=== PATIENT | male | born 1965 | race Caucasian/White ===

== ENCOUNTER → 2018-04-24 | Outpatient (CLI) | payer OTHER ==
[~2018-04-24] MED LIST: ACHD5005 PO; AMPI500C9 PO; CFTR1PB IV; CLIN300C11 PO; METR500T PO; SODI473S7; SULF1TAB35 PO; TERB250T16 PO; VENL75CA PO
[2018-04-24 17:19] LABS: BASOPHILS % (AUTO) 0 % (0-10); EOSINOPHILS # (AUTO) 0.2 10^3/uL (0.0-0.3); EOSINOPHILS % (AUTO) 3 % (0-10); HEMATOCRIT 32 % (40-54); HEMOGLOBIN 10.5 G/DL (13.3-17.7); LYMPHOCYTES # (AUTO) 1.7 X 10^3 (1.0-4.0); LYMPHOCYTES % (AUTO) 18 % (12-44); MEAN CORPUSCULAR HEMOGLOBIN 28 PG (25-34); MEAN CORPUSCULAR HGB CONC 33 G/DL (32-36); MEAN CORPUSCULAR VOLUME 84 FL (80-99); MEAN PLATELET VOLUME 8.9 FL (7.4-10.4); MONOCYTES # (AUTO) 0.8 X 10^3 (0.0-1.0); MONOCYTES % (AUTO) 9 % (0-12); NEUTROPHILS # (AUTO) 6.4 X 10^3 (1.8-7.8); NEUTROPHILS % (AUTO) 70 % (42-75); PLATELET COUNT 491 10^3/uL (130-400); RED BLOOD COUNT 3.76 10^6/uL (4.35-5.85); RED CELL DISTRIBUTION WIDTH 13.8 % (10.0-14.5); WHITE BLOOD COUNT 9.2 10^3/uL (4.3-11.0)
[2018-04-24 17:34] LABS: ALANINE AMINOTRANSFERASE 29 U/L (0-55); ALBUMIN 3.4 GM/DL (3.2-4.5); ALKALINE PHOSPHATASE 89 U/L (40-136); BILIRUBIN,TOTAL 0.4 MG/DL (0.1-1.0); BUN/CREATININE RATIO 13; CALCIUM 9.5 MG/DL (8.5-10.1); CARBON DIOXIDE 24 MMOL/L (21-32); CHLORIDE 97 MMOL/L (98-107); CREATININE SERUM 0.91 MG/DL (0.60-1.30); GFR ESTIMATED > 60; GLUCOSE 263 MG/DL (70-105); POTASSIUM 4.2 MMOL/L (3.6-5.0); SODIUM 131 MMOL/L (135-145); TOTAL PROTEIN 8.7 GM/DL (6.4-8.2)
--- NOTE | 2018-04-24 19:27 | Diagnostic Imaging Report ---
INDICATION: Non-pressure chronic ulcer of left foot. AP, oblique, and lateral views of the left foot are obtained. There is no prior study for comparison. FINDINGS: There is destructive change of the proximal aspect of the fifth proximal phalanx as well as the distal aspect of the fifth metatarsal. There is dislocation of the fifth MTP joint with bony destruction. Underlying osteomyelitis is suspected. There is overlying soft tissue swelling. There is no other destructive bony lesion. There is diffuse degenerative change throughout the tarsal bones with plantar and posterior calcaneal spurring. IMPRESSION: Findings suspicious for osteomyelitis of the distal aspect of the fifth metatarsal as well as the fifth proximal phalanx. There is dislocation and bony destruction of the fifth MTP joint. There are underlying degenerative findings. Dictated by: Dictated on workstation # [id number]
== END ==
LOC: LAB 16:25
PROVIDERS: ATTEND Surgery
DX: E11.621 Type 2 diabetes mellitus with foot ulcer (principal); L97.523 Non-pressure chronic ulcer of other part of left foot with necrosis of muscle
CPT/HCPCS: 36415; 73630; 80053; 83036; 85025

== ENCOUNTER → 2018-04-24 | Outpatient (CLI) | payer OTHER | LOC: WOUNDCARE 14:14 | PROVIDERS: ATTEND Surgery | DX: E11.621 Type 2 diabetes mellitus with foot ulcer (principal); L97.523 Non-pressure chronic ulcer of other part of left foot with necrosis of muscle; L97.511 Non-pressure chronic ulcer of other part of right foot limited to breakdown of skin; L03.116 Cellulitis of left lower limb | CPT/HCPCS: 97597 ==

== ENCOUNTER 2018-04-27 09:47 | Inpatient (IN) | payer OTHER ==
[~2018-04-27] VITALS: Ht 177.8 cm; Wt 112.7 kg
[2018-04-27 10:00] VITALS: BP 153/69
[2018-04-27] MEDS ORDERED: ONDANSETRON 4 MG/2 ML (SDV) Z0FRAN IVP PRN (10:00)
[2018-04-27] MEDS ORDERED: ACETAMINOPHEN 500 MG TAB (TYLENOL) PO PRN (10:00)
[2018-04-27] MEDS ORDERED: fentaNYL INJECTION 100 MCG/2 ML AMP IVP PRN ×2 (10:00→12:00)
[2018-04-27] MEDS ORDERED: ALPRAZolam 0.25 MG (XANAX) TAB PO PRN (10:00)
[2018-04-27] MEDS ORDERED: CALCIUM CARBONATE 500 MG (TUMS) TAB.CHEW PO PRN (10:00)
[2018-04-27] MEDS ORDERED: VANCOMYCIN INJECTION 0.1 MG in NS (IVPB) 250 ML IV SCH (10:00)
[2018-04-27] MEDS ORDERED: DOCUSATE SODIUM 100 MG (COLACE) CAP PO PRN (10:00)
[2018-04-27] MEDS ORDERED: AMPI500C9 PO (10:28)
[2018-04-27] MEDS ORDERED: SULF1TAB35 PO (10:28)
[2018-04-27] MEDS ORDERED: VENL75CA PO (10:28)
[2018-04-27] MEDS ORDERED: TERB250T16 PO (10:28)
[2018-04-27] MEDS ORDERED: METR500T PO (10:28)
[2018-04-27] MEDS ORDERED: SODI473S7 (10:28)
[2018-04-27] MEDS ORDERED: CLIN300C11 PO (10:28)
[2018-04-27 10:34] VITALS: BP 122/77
[2018-04-27] MEDS ORDERED: PIPERACILLIN/TAZO 4.5 GM/NS 100 ML IV NR ×2 (10:38)
[2018-04-27 10:48] LABS: BASOPHILS % (AUTO) 0 % (0-10); EOSINOPHILS # (AUTO) 0.1 10^3/uL (0.0-0.3); EOSINOPHILS % (AUTO) 2 % (0-10); HEMATOCRIT 36 % (40-54); HEMOGLOBIN 11.9 G/DL (13.3-17.7); LYMPHOCYTES # (AUTO) 1.3 X 10^3 (1.0-4.0); LYMPHOCYTES % (AUTO) 17 % (12-44); MEAN CORPUSCULAR HEMOGLOBIN 28 PG (25-34); MEAN CORPUSCULAR HGB CONC 33 G/DL (32-36); MEAN CORPUSCULAR VOLUME 84 FL (80-99); MEAN PLATELET VOLUME 8.5 FL (7.4-10.4); MONOCYTES # (AUTO) 0.7 X 10^3 (0.0-1.0); MONOCYTES % (AUTO) 10 % (0-12); NEUTROPHILS # (AUTO) 5.4 X 10^3 (1.8-7.8); NEUTROPHILS % (AUTO) 71 % (42-75); PLATELET COUNT 623 10^3/uL (130-400); RED BLOOD COUNT 4.24 10^6/uL (4.35-5.85); RED CELL DISTRIBUTION WIDTH 14.3 % (10.0-14.5); WHITE BLOOD COUNT 7.6 10^3/uL (4.3-11.0)
[2018-04-27 11:09] LABS: ALBUMIN 3.9 GM/DL (3.2-4.5); BILIRUBIN,TOTAL 0.4 MG/DL (0.1-1.0); CALCIUM 10.1 MG/DL (8.5-10.1); CREATININE SERUM 1.25 MG/DL (0.60-1.30); POTASSIUM 4.4 MMOL/L (3.6-5.0); TOTAL PROTEIN 10.2 GM/DL (6.4-8.2)
[2018-04-27] MEDS ORDERED: VANCOMYCIN 2000 MG/NS 500 ML IVPB IV SCH ×2 (11:30)
[2018-04-27] MEDS: ENOXAPARIN 40 MG/0.4 ML (LOVENOX) SYR SC SCH (11:51)
[2018-04-27] MEDS: inSUlin ASPART (NovoLOG) 1 UNIT/0.01 ML (CHARGE PER UNIT) SC SCH ×3 (11:52→21:23)
[2018-04-27] MEDS: NS IV 1000 ML 1,000 ML IV SCH ×2 (11:52→21:58)
--- NOTE | 2018-04-27 11:58 | History & Physical-Hospitalist ---
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 Patient was found to have severe infection of acute on chronic type any of been placed on 4 antibiotics and seen by Dr. Diaz the patient will need debridement and resection of the osteomyelitis of the bone of the left foot. He denies any significant problems and had stopped diabetic medications since undergoing a lap band and losing a lot of weight. He is recently and having significant social issues at home making it more more difficult for him to get his foot healed up. Source: patient Exam Limitations: no limitations Date Seen 04/27/18 Time Seen by a Provider: 10:00 Attending Physician Lamar Ryan DO PCP No,Local Physician Referring Physician Date of Admission Apr 27, 2018 at 09:55 Home Medications & Allergies Home Medications Reviewed patient Home Medication Reconciliation performed by pharmacy medication reconciliations instrument technician and/or nursing. Patients Allergies have been reviewed. Allergies Allergies Coded Allergies No Known Drug Allergies (Dlpiepjvgc89/1/18) Past Ezdixde-Pgtnzp-Rgjokk Hx Past Med/Social Hx: Reviewed Nursing Past Med/Soc Hx, Reviewed and Corrections made Patient Social History Marrital Status: Employed/Student: self-employed Alcohol Use: Rarely Uses Alcohol Beverage of Choice: Beer Smoking Status: Never a Smoker Recent Foreign Travel: No Contact w/other who traveled: No Past Medical History Surgeries: Abdominal (lapband) Endocrine: Diabetes, Non-Insulin dep Review of Systems Constitutional: see HPI, weakness EENTM: no symptoms reported Respiratory: no symptoms reported Cardiovascular: no symptoms reported Gastrointestinal: no symptoms reported Genitourinary: no symptoms reported Musculoskeletal: other (foot pain left) Skin: see HPI Psychiatric/Neurological: Headache Physical Exam Physical Exam Vital Signs Vital Signs - First Documented Capillary Refill : Height, Weight, BMI Height: 5'10.00" Weight: 225lbs. 5.0oz. 102.929732eq; 32.3 BMI Method: General Appearance: No Apparent Distress, WD/WN Eyes: Bilateral Eye Normal Inspection, Bilateral Eye PERRL HEENT: PERRL/EOMI, TMs Normal, Normal ENT Inspection, Pharynx Normal Neck: Full Range of Motion, Normal Inspection, Non Tender, Supple, Carotid Bruit Respiratory: Chest Non Tender, Lungs Clear, Normal Breath Sounds, No Accessory Muscle Use, No Respiratory Distress Cardiovascular: Regular Rate, Rhythm, No Edema, No Gallop, No JVD, No Murmur, Normal Peripheral Pulses Gastrointestinal: Normal Bowel Sounds, No Organomegaly, No Pulsatile Mass, Non Tender, Soft Back: Normal Inspection, No CVA Tenderness, No Vertebral Tenderness Extremity: Normal Capillary Refill, Normal Inspection, Normal Range of Motion, Non Tender, No Calf Tenderness, No Pedal Edema Neurologic/Psychiatric: Alert, Oriented x3, No Motor/Sensory Deficits, Normal Mood/Affect Skin: Normal Color, Warm/Dry, Other (left foot with draining ulcer and bone exposed) Lymphatic: No Adenopathy Results Results/Procedures Labs Laboratory Tests 04/27/18 10:30 04/28/18 06:03 Patient resulted labs reviewed. Assessment/Plan Admission Diagnosis Assessment: Left DM foot ulcer with osteomyelitis confirmed on MRI Cellulitis Previous DM but stopped meds after lapband Plan: IV abx broad spectrum Dr Lynn consultation Admission Status: Inpatient Order (span 2 midnights) Reason for Inpatient Admission: Severe osteomyelitis and cellulitis will require IV abx and debridement Diagnosis/Problems Diagnosis/Problems (1) Foot ulcer, left Status: Acute Qualifiers: Non-pressure ulcer stage: with necrosis of bone Qualified Codes: L97.524 - Non-pressure chronic ulcer of other part of left foot with necrosis of bone (2) Osteomyelitis Status: Acute Qualifiers: Osteomyelitis type: unspecified type Osteomyelitis location: foot Laterality: left Qualified Codes: M86.9 - Osteomyelitis, unspecified (3) Diabetes mellitus Status: Chronic Qualifiers: Diabetes mellitus type: type 2 Diabetes mellitus mcfp insulin use: without long term care phlebotomist use Diabetes mellitus complication status: with unspecified complications Qualified Codes: E11.8 - Type 2 diabetes mellitus with unspecified complications HIRAL GERARDO MED STUDENT 04/27/18 1253: History of Present Illness HPI/Chief Complaint CC: Left foot ulcer HPI: This 53 y/o male was admitted upon referral from Dr. Lynn due to a diabetic ulcer of the left foot. The patient states that the ulcer began as a small wound after peeling of a callus in October of this year. The wound became infected and he began to seek treatment at the [facility] in [place] in December. He was prescribed antibiotic therapeis and was going in to have the nurse redress the wound periodically. He had a similar incident that occurred 7-8 years ago when he stepped on a nail. He stated that the injury eventually required surgical debridement. He was diagnosed with Diabetes in the but went through gastric bypass surgery several years ago and quit monitoring his blood glucose or taking any medications. Home Medications & Allergies Home Medications Active Scripts Medications Dose Route/Sig Max Daily Dose Days Date Category Dose Instructions Clindamycin HCl 300 Mg Capsule 300 Mg PO Q6H 04/27/18 Reported #40 CAPSULES FILLED 04-17-18 Terbinafine HCl 250 Mg Tablet 250 Mg PO DAILY 04/27/18 Reported #30 FILLED 04-17-18 Ampicillin Trihydrate 500 Mg Capsule 500 Mg PO QID 04/27/18 Reported 10 DAY SUPPLY FILLED 04-19-18 Flagyl (Metronidazole) 500 Mg Tablet 500 Mg PO TID 04/27/18 Reported 10 DAY SUPPLY FILLED 04-24-18 Bactrim Ds Tablet (Sulfamethoxazole/Trimethoprim) 1 Each Tablet 1 Tab PO BID 10 04/27/18 Reported 10 DAY SUPPLY FILLED 04-24-18 Dakin's (Sodium Hypochlorite) 473 Ml Solution UD 04/27/18 Reported Effexor Xr (Venlafaxine HCl) 75 Mg Cap.er.24h 75 Mg PO DAILY 04/27/18 Reported Past Xzutike-Uvsadt-Whopsi Hx Patient Social History Marrital Status: Number of Children: 2 Employed/Student: self-employed Alcohol Use: Rarely Uses Alcohol Beverage of Choice: Beer Recreational Drug Use: No Smoking Status: Never a Smoker Seasonal Allergies Seasonal Allergies: No Past Medical History Surgeries: Abdominal Family History Diabetes Review of Systems Constitutional: no symptoms reported EENTM: no symptoms reported Respiratory: no symptoms reported Cardiovascular: no symptoms reported Gastrointestinal: no symptoms reported Psychiatric/Neurological: Headache Physical Exam Physical Exam General Appearance: No Apparent Distress, WD/WN HEENT: PERRL/EOMI Neck: Full Range of Motion, Normal Inspection, Non Tender, Supple Respiratory: Chest Non Tender, Lungs Clear, Normal Breath Sounds, No Accessory Muscle Use, No Respiratory Distress Cardiovascular: Regular Rate, Rhythm, No Edema, No Gallop, No JVD, No Murmur, Normal Peripheral Pulses Neurologic/Psychiatric: Alert, Oriented x3, No Motor/Sensory Deficits, Normal Mood/Affect Skin: Normal Color, Warm/Dry Lymphatic: No Adenopathy Assessment/Plan Assessment and Plan Assessment: 1) Ulcer of the left foot 2) Diabetes Mellitus Plan: 1) IV abx 2) Initiate diabetes pharmacotherapy LAMAR RYAN DO Apr 27, 2018 11:58 HIRAL GERARDO MED STUDENT Apr 27, 2018 12:53
[2018-04-27 12:00] VITALS: BP 124/71
[2018-04-27 13:31] LABS: BILIRUBIN,URINE NEGATIVE (NEGATIVE); CLARITY,URINE CLEAR; COLOR,URINE YELLOW; GLUCOSE, URINE (UA) 3+ (NEGATIVE); KETONES,URINE 2+ (NEGATIVE); LEUKOCYTE ESTERASE ,URINE 2+ (NEGATIVE); NITRITE,URINE NEGATIVE (NEGATIVE); PH,URINE 5 (5-9); PROTEIN,URINE 2+ (NEGATIVE); UROBILINOGEN,URINE NORMAL (NORMAL)
[2018-04-27 13:51] LABS: BACTERIA,URINE FEW /HPF
--- NOTE | 2018-04-27 17:09 | Diagnostic Imaging Report ---
PROCEDURE: MR imaging left lower extremity without contrast. TECHNIQUE: Multiplanar, multisequence non contrast enhanced MR imaging of the left lower extremity was accomplished. INDICATION: Ulcer along the lateral forefoot. Swelling. COMPARISON: Left foot radiographs from 04/24/2018. FINDINGS: MRI confirms osteomyelitis throughout the entire fifth metatarsal with a pathologic fracture at the level of the fifth metatarsal head neck junction. There is also marrow replacement in the fifth metatarsal head and phalanges that would also indicate osteomyelitis. There are no features of osteomyelitis within the fourth ray. Remainder of the osseous structures in the foot are also normal. No drainable soft tissue abscess. Skin thickening and dermal abscess along the lateral aspect of the foot is indicative of cellulitis without drainable abscess. IMPRESSION: 1. Osteomyelitis of the entire fifth metatarsal and fifth phalanges. 2. No drainable abscess. Dictated by: Dictated on workstation # [id number]
[2018-04-27] MEDS ORDERED: FLU QUADRIvalent (5+ YOA) 2018-2019 (AFLURIA) 0.5 ML IM ONE (17:15)
[2018-04-27] MEDS: PIPERACILLIN SODIUM/TAZOBACTAM 4.5 GM in NS (IVPB) 100 ML IV SCH (18:01)
[2018-04-27] MEDS: VANCOMYCIN 1500 MG/NS 500 ML IVPB IV SCH ×2 (22:28)
[2018-04-28] VITALS (7 sets, daily range): BP systolic 102–116; BP diastolic 62–78
[2018-04-28] MEDS: PIPERACILLIN SODIUM/TAZOBACTAM 4.5 GM in NS (IVPB) 100 ML IV SCH ×3 (01:55→18:54)
[2018-04-28] MEDS: VENlafaxine XR 75 MG (EFFEXOR XR) CAP PO SCH (05:29)
[2018-04-28] MEDS: inSUlin ASPART (NovoLOG) 1 UNIT/0.01 ML (CHARGE PER UNIT) SC SCH ×4 (05:40→22:23)
[2018-04-28] MEDS: NS IV 1000 ML 1,000 ML IV SCH ×2 (06:33→21:36)
[2018-04-28 07:26] LABS: BASOPHILS % (AUTO) 1 % (0-10); EOSINOPHILS # (AUTO) 0.2 10^3/uL (0.0-0.3); EOSINOPHILS % (AUTO) 3 % (0-10); HEMATOCRIT 32 % (40-54); HEMOGLOBIN 10.4 G/DL (13.3-17.7); LYMPHOCYTES # (AUTO) 1.7 X 10^3 (1.0-4.0); LYMPHOCYTES % (AUTO) 33 % (12-44); MEAN CORPUSCULAR HEMOGLOBIN 27 PG (25-34); MEAN CORPUSCULAR HGB CONC 32 G/DL (32-36); MEAN CORPUSCULAR VOLUME 85 FL (80-99); MEAN PLATELET VOLUME 8.8 FL (7.4-10.4); MONOCYTES # (AUTO) 0.7 X 10^3 (0.0-1.0); MONOCYTES % (AUTO) 13 % (0-12); NEUTROPHILS # (AUTO) 2.6 X 10^3 (1.8-7.8); NEUTROPHILS % (AUTO) 50 % (42-75); PLATELET COUNT 515 10^3/uL (130-400); RED BLOOD COUNT 3.81 10^6/uL (4.35-5.85); RED CELL DISTRIBUTION WIDTH 14.3 % (10.0-14.5); WHITE BLOOD COUNT 5.1 10^3/uL (4.3-11.0)
[2018-04-28 07:41] LABS: ALANINE AMINOTRANSFERASE 21 U/L (0-55); ALBUMIN 3.2 GM/DL (3.2-4.5); ALKALINE PHOSPHATASE 70 U/L (40-136); BILIRUBIN,TOTAL 0.3 MG/DL (0.1-1.0); BUN/CREATININE RATIO 11; CALCIUM 9.5 MG/DL (8.5-10.1); CARBON DIOXIDE 21 MMOL/L (21-32); CHLORIDE 103 MMOL/L (98-107); GFR ESTIMATED > 60; GLUCOSE 140 MG/DL (70-105); POTASSIUM 4.3 MMOL/L (3.6-5.0); SODIUM 135 MMOL/L (135-145); TOTAL PROTEIN 8.1 GM/DL (6.4-8.2)
[2018-04-28] MEDS ORDERED: TROUGH ORDER-PHARMACY XX ONE (10:00)
--- NOTE | 2018-04-28 10:44 | Progress Note-Hospitalist ---
ADRIANNA RYAN 04/28/18 1044: Subjective HPI/CC On Admission Date Seen by Provider: Apr 28, 2018 Time Seen by Provider: 11:00 CC: Left foot ulcer HPI: This 53 y/o male was admitted upon referral from Dr. Lynn due to a diabetic ulcer of the left foot. The patient states that the ulcer began as a small wound after peeling of a callus in October of this year. The wound became infected and he began to seek treatment at the [facility] in [place] in December. He was prescribed antibiotic therapeis and was going in to have the nurse redress the wound periodically. He had a similar incident that occurred 7-8 years ago when he stepped on a nail. He stated that the injury eventually required surgical debridement. He was diagnosed with Diabetes in the s but went through gastric bypass surgery several years ago and quit monitoring his blood glucose or taking any medications. Subjective/Events-last exam Will place PICC line Continue antibiotics Continue insulin Focused Exam Lactate Level 04/27/18 10:30: Lactic Acid Level 1.36 Objective Exam Vital Signs Vital Signs Date Time Temp Pulse Resp B/P (MAP) Pulse Ox O2 Delivery O2 Flow Rate FiO2 04/28/18 08:24 98.9 70 18 104/78 (87) 98 Room Air Capillary Refill : General Appearance: No Apparent Distress, WD/WN Respiratory: Chest Non Tender, Lungs Clear, Normal Breath Sounds, No Accessory Muscle Use, No Respiratory Distress Cardiovascular: Regular Rate, Rhythm, No Edema, No Gallop, No JVD, No Murmur, Normal Peripheral Pulses Neurologic/Psychiatric: Alert, Oriented x3, No Motor/Sensory Deficits, Normal Mood/Affect Results/Procedures Lab Laboratory Tests 04/28/18 06:03 Patient resulted labs reviewed. Assessment/Plan Assessment and Plan Assess & Plan/Chief Complaint Left DM foot ulcer with osteo DM OOC Abx PICC Clinical Quality Measures DVT/VTE Risk/Contraindication: Risk Factor Score Per Nursin RFS Level Per Nursing on Admit: 3=High HIRAL GERARDO MED STUDENT 04/28/18 1134: Subjective Subjective/Events-last exam Pt. looks well and is not currently in any pain Pt. will go to surgery later today He reports a good appetite and no N/V/D Objective Exam General Appearance: No Apparent Distress, WD/WN Respiratory: Chest Non Tender, Lungs Clear, Normal Breath Sounds, No Accessory Muscle Use, No Respiratory Distress Cardiovascular: Regular Rate, Rhythm, No Edema, No Gallop, No JVD, No Murmur, Normal Peripheral Pulses Neurologic/Psychiatric: Alert, Oriented x3, No Motor/Sensory Deficits, Normal Mood/Affect Skin: Normal Color, Warm/Dry Assessment/Plan Assessment and Plan Assess & Plan/Chief Complaint Assessment: 1) ulcer of left foot 2) diabetes mellitus Plan: 1) surgical removal of necrotic bone and tissue on left foot 2) insulin therapy for DM ADRIANNA RYAN DO Apr 28, 2018 10:44 HIRAL GERARDO MED STUDENT Apr 28, 2018 11:34
--- NOTE | 2018-04-28 13:27 | Diagnostic Imaging Report ---
Indication: Left foot ulcer in the region of the fifth MTP joint. The patient is diabetic. Patient was measured administered 24.3 mCi technetium 99m MDP intravenously and dynamic flow, blood pool and delayed imaging over bilateral feet was performed. There is asymmetric increased perfusion to the left foot particularly along on the lateral side in the region of the fifth metatarsal and fifth toe. There is some mild increased perfusion in the region of the great toe of the right foot. Blood pool activity demonstrates persistent activity at these same areas in the left great toe in the region of the interphalangeal joint as well as the lateral portion of the left foot. The delayed imaging does show some intense uptake along the proximal and mid shaft of the left fifth metatarsal. There is also uptake in the right great toe. Impression: Three-phase abnormalities are identified in the lateral portion of the left foot along the fifth metatarsal particularly the proximal and mid aspect consistent with osteomyelitis. There is also a 3 phase abnormality involving the right great toe. Correlation with plain films of the right great toe would be useful. Dictated by: Dictated on workstation # [id number]
[2018-04-28] MEDS: ENOXAPARIN 40 MG/0.4 ML (LOVENOX) SYR SC SCH (13:59)
[2018-04-28] MEDS: VANCOMYCIN 1500 MG/NS 500 ML IVPB IV SCH ×4 (14:11→22:23)
--- NOTE | 2018-04-28 14:23 | Diagnostic Imaging Report ---
Indication: PICC line placement. Time of exam: 2:06 PM No prior studies are available for comparison. Left upper extremity PICC line appears to have the tip in good position overlying the SVC. No pneumothorax or effusion is seen. The lungs are clear. Impression: Satisfactory PICC line placement. Dictated by: Dictated on workstation # [id number]
[2018-04-28] MEDS ORDERED: LIDOCAINE PF 2% 5 ML (XYLOCAINE) VIAL ONE (15:41)
[2018-04-28] MEDS ORDERED: proPOfol 200 MG/20 ML (DIPRIVAN) VIAL IV ONE (15:41)
[2018-04-28] MEDS ORDERED: ONDANSETRON 4 MG/2 ML (SDV) Z0FRAN ONE (15:41)
[2018-04-28] MEDS ORDERED: fentaNYL INJECTION 100 MCG/2 ML AMP ONE (15:41)
[2018-04-28] MEDS ORDERED: MIDAZOLAM 2 MG/2 ML (VERSED) VIAL ONE (15:41)
[2018-04-28] MEDS ORDERED: SEVOFLURANE (ULTANE) 15 ML INHAL SOLN ONE ×6 (16:00→17:21)
[2018-04-28] MEDS ORDERED: LACTATED RINGERS 1,000 ML IV PRN (16:22)
[2018-04-28] MEDS ORDERED: ONDANSETRON 4 MG/2 ML (SDV) Z0FRAN IVP PRN (16:30)
[2018-04-28] MEDS ORDERED: morphine INJ 10 MG/ML 1ML (SYR OR VIAL) IVP ONE (16:30)
[2018-04-28] MEDS ORDERED: fentaNYL INJECTION 100 MCG/2 ML AMP IVP ONE (16:30)
[2018-04-28] MEDS ORDERED: MEPERIDINE (DEMEROL) INJ 50 MG/ML IVP ONE (16:30)
[2018-04-28] MEDS ORDERED: VANCOMYCIN 1000 MG/VIAL ONE (16:46)
[2018-04-28] MEDS ORDERED: GENTAMICIN 40 MG/ML 2 ML INJ SDV ONE ×2 (16:47→16:55)
[2018-04-29] VITALS: BP 100/59
[2018-04-29] MEDS: PIPERACILLIN SODIUM/TAZOBACTAM 4.5 GM in NS (IVPB) 100 ML IV SCH ×3 (01:22→16:25)
[2018-04-29] MEDS: NS IV 1000 ML 1,000 ML IV SCH ×2 (03:01→11:33)
[2018-04-29 04:00] VITALS: BP 104/64
[2018-04-29] MEDS: inSUlin ASPART (NovoLOG) 1 UNIT/0.01 ML (CHARGE PER UNIT) SC SCH ×4 (06:14→21:29)
[2018-04-29] MEDS: VENlafaxine XR 75 MG (EFFEXOR XR) CAP PO SCH (06:30)
[2018-04-29 07:59] VITALS: BP 115/61
[2018-04-29] MEDS: ENOXAPARIN 40 MG/0.4 ML (LOVENOX) SYR SC SCH (09:46)
--- NOTE | 2018-04-29 09:58 | Anesthesia-General Post-Op ---
General Patient Condition Mental Status/LOC: Same as Preop Cardiovascular: Satisfactory Nausea/Vomiting: Absent Respiratory: Satisfactory Pain: Controlled Complications: Absent Post Op Complications Complications None Follow Up Care/Instructions Patient Instructions None needed. Anesthesia/Patient Condition Patient Condition Patient is doing well, no complaints, stable vital signs, no apparent adverse anesthesia problems. No complications reported per nursing. STEFANIE HANNA CRNA Apr 29, 2018 09:58
[2018-04-29] MEDS: VANCOMYCIN 1500 MG/NS 500 ML IVPB IV SCH ×4 (11:33→23:27)
--- NOTE | 2018-04-29 11:52 | Progress Note-Hospitalist ---
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 Patient was found to have severe infection of acute on chronic type any of been placed on 4 antibiotics and seen by Dr. Diaz the patient will need debridement and resection of the osteomyelitis of the bone of the left foot. He denies any significant problems and had stopped diabetic medications since undergoing a lap band and losing a lot of weight. He is recently and having significant social issues at home making it more more difficult for him to get his foot healed up. Subjective/Events-last exam Patient currently says that he feels great denies having any chest pain or shortness of breath. He is having very little post op pain from the amputation on his left foot. Wound VAC is in place and the dressing appears dry and clean. Blood sugars are running a little high but that would be expected after the stress of the surgery. Review of Systems Musculoskeletal: foot pain (Minimal) Focused Exam Lactate Level 04/27/18 10:30: Lactic Acid Level 1.36 Objective Exam Vital Signs Vital Signs Date Time Temp Pulse Resp B/P (MAP) Pulse Ox O2 Delivery O2 Flow Rate FiO2 04/29/18 07:59 98.4 80 18 115/61 (79) 99 Room Air Capillary Refill : General Appearance: No Apparent Distress, WD/WN HEENT: TMs Normal, Normal ENT Inspection, Pharynx Normal Neck: Full Range of Motion, Normal Inspection, Non Tender, Supple Respiratory: Chest Non Tender, Lungs Clear, Normal Breath Sounds, No Accessory Muscle Use, No Respiratory Distress Cardiovascular: Regular Rate, Rhythm, No Gallop, No JVD, No Murmur Gastrointestinal: Non Tender, Soft Rectal: Deferred Back: Normal Inspection, No CVA Tenderness Extremity: Pedal Edema Skin: Normal Color, Warm/Dry Results/Procedures Lab Patient resulted labs reviewed. Assessment/Plan Assessment and Plan Assess & Plan/Chief Complaint 1. Postop day number 1 status post amputation left fifth metatarsal head for osteomyelitis on vancomycin and Zosyn 2. Diabetes mellitus on insulin consideration could be given to addition of a statin and an JENELLE inhibitor. 3. Anemia with a hemoglobin at 10.4 Currently doing well will Hep-Lock his IV fluids Clinical Quality Measures DVT/VTE Risk/Contraindication: Risk Factor Score Per Nursin RFS Level Per Nursing on Admit: 3=High JOANIE SARABIA MD Apr 29, 2018 11:52
--- NOTE | 2018-04-29 14:52 | Consultation ---
History of Present Illness History of Present Illness Patient Consulted On(vlad/time) 04/29/18 14:46 Date Seen by Provider: Apr 28, 2018 Time Seen by Provider: 16:00 Reason for Visit: Osteomyelitis Left Foot History of Present Illness Pt has an approximately 3mo history of a nonhealing wound to the left lateral foot. 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 Currently denies F/C/N/V. He is currently not taking DM meds after having past history of lap band surgery and weight loss. Allergies and Home Medications Allergies Coded Allergies: No Known Drug Allergies (Unverified , 04/27/18) Home Medications Ampicillin Trihydrate 500 Mg Capsule, 500 MG PO QID, (Reported) 10 DAY SUPPLY FILLED 04-19-18 Clindamycin HCl 300 Mg Capsule, 300 MG PO Q6H, (Reported) #40 CAPSULES FILLED 04-17-18 Metronidazole 500 Mg Tablet, 500 MG PO TID, (Reported) 10 DAY SUPPLY FILLED 04-24-18 Sodium Hypochlorite 473 Ml Solution, UD, (Reported) Sulfamethoxazole/Trimethoprim 1 Each Tablet, 1 TAB PO BID, (Reported) 10 DAY SUPPLY FILLED 04-24-18 Terbinafine HCl 250 Mg Tablet, 250 MG PO DAILY, (Reported) #30 FILLED 04-17-18 Venlafaxine HCl 75 Mg Cap.er.24h, 75 MG PO DAILY, (Reported) Patient Home Medication List Home Medication List Reviewed: Yes Past Ovqmeim-Lpqyje-Plrfqp Hx Past Med/Social Hx: Reviewed Nursing Past Med/Soc Hx, Reviewed and Corrections made Patient Social History Alcohol Use: Rarely Uses Number of Drinks Today: AA Alcohol Beverage of Choice: Beer Recreational Drug Use: No Smoking Status: Never a Smoker Recent Foreign Travel: No Contact w/Someone Who Travel: No Recent Infectious Disease Expo: No Recent Hopitalizations: No Seasonal Allergies Seasonal Allergies: No Past Medical History Abdominal (lapband) Respiratory: No Cardiac: No Neurological: Yes Genitourinary: No Gastrointestinal: No Musculoskeletal: No Diabetes, Non-Insulin dep Are Your Blood Sugars Over 250: Yes HEENT: No Cancer: No Psychosocial: Yes (Anger control) Integumentary: No Blood Disorders: No Adverse Reaction/Blood Tranf: No Family Medical History Diabetes mellitus 19 FATHER, FHx: COPD (chronic obstructive pulmonary disease) 19 MOTHER Diabetes Physical Exam-General Problems Physical Exam Vital Signs Vital Signs - First Documented Capillary Refill : Extremities: other (vascular status intact to the left foot, gross sensation diminished. there is a large 4cm wound to the plantar aspect of the foot probing clear to the dorsal foot wound +purulence +erythema, +exposed bone and malodor.) Assessment/Plan Assessment/Plan Admission Diagnosis/Plan Osteomyelitis LLE -MRI reviewed -Plan for left 5th ray amputation -will need intermediate IV antibiotics. Admission Status: Inpatient Order (span 2 midnights) Reason for Inpatient Admission: Osteomyelitis Clinical Quality Measures DVT/VTE Risk/Contraindication: Risk Factor Score Per Nursin RFS Level Per Nursing on Admit: 3=High ROSE LOCK DPM Apr 29, 2018 14:52
--- NOTE | 2018-04-29 14:58 | Podiatry Progress Note ---
Standard Progress Note Progress Notes/Assess & Plan Date Seen by a Provider: Apr 29, 2018 Time Seen by a Provider: 12:15 Progress/Assessment & Plan Pt seen at today states he is feeling well. Denies F/C/N/V. LLE- active ROM intact to digits, CFT-WNL, Wound VAC intact minimal sanguinous drainage, calves supple nontender Final Diagnosis POD #1 Left 5th Ray Resection, placement of antibiotic beads, and Wound VAC application -Cont IV abx -Awaiting surgical cultures -Maintain Wound VAC LLE -NWB LLE -Pain meds PRN ROSE LOCK DPM Apr 29, 2018 14:58
[2018-04-29 16:14] VITALS: BP 12/67
[2018-04-29 16:22] VITALS: BP 122/67
[2018-04-29] MEDS: HYDROcodone/APAP 5 MG/325 MG (LORTAB) TAB PO PRN (16:30)
[2018-04-30] VITALS: BP 98/53
[2018-04-30] MEDS: PIPERACILLIN SODIUM/TAZOBACTAM 4.5 GM in NS (IVPB) 100 ML IV SCH ×3 (01:36→17:33)
[2018-04-30] MEDS: VENlafaxine XR 75 MG (EFFEXOR XR) CAP PO SCH (06:27)
[2018-04-30] MEDS: inSUlin ASPART (NovoLOG) 1 UNIT/0.01 ML (CHARGE PER UNIT) SC SCH ×4 (06:27→21:55)
[2018-04-30 08:00] VITALS: BP 123/60
[2018-04-30] MEDS ORDERED: TROUGH ORDER-PHARMACY XX NR (10:00)
[2018-04-30] MEDS: ENOXAPARIN 40 MG/0.4 ML (LOVENOX) SYR SC SCH (10:15)
--- NOTE | 2018-04-30 10:45 | Progress Note-Hospitalist ---
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 Patient was found to have severe infection of acute on chronic type any of been placed on 4 antibiotics and seen by Dr. Diaz the patient will need debridement and resection of the osteomyelitis of the bone of the left foot. He denies any significant problems and had stopped diabetic medications since undergoing a lap band and losing a lot of weight. He is recently and having significant social issues at home making it more more difficult for him to get his foot healed up. Subjective/Events-last exam Patient currently is doing well. Wound cultures show mixed keith. Patient says that the pain is manageable and has no complaints otherwise. Blood sugars have been in the 100s. Review of Systems Musculoskeletal: foot pain (Minimal) Objective Exam Vital Signs Vital Signs Date Time Temp Pulse Resp B/P (MAP) Pulse Ox O2 Delivery O2 Flow Rate FiO2 04/30/18 08:00 96.9 68 18 123/60 (81) 97 Room Air Capillary Refill : General Appearance: No Apparent Distress, WD/WN HEENT: TMs Normal, Normal ENT Inspection, Pharynx Normal Neck: Full Range of Motion, Normal Inspection, Non Tender, Supple Respiratory: Chest Non Tender, Lungs Clear, Normal Breath Sounds, No Accessory Muscle Use, No Respiratory Distress Cardiovascular: Regular Rate, Rhythm, No Gallop, No Murmur, Normal Peripheral Pulses Gastrointestinal: Normal Bowel Sounds, Non Tender, Soft Extremity: Normal Range of Motion, Pedal Edema, Swelling, Other (Dressing is dry) Neurologic/Psychiatric: Alert, Oriented x3, No Motor/Sensory Deficits, Normal Mood/Affect Skin: Normal Color, Warm/Dry Results/Procedures Lab Patient resulted labs reviewed. Assessment/Plan Assessment and Plan Assess & Plan/Chief Complaint 1. Postop day number 2 status post amputation left fifth metatarsal head for osteomyelitis on vancomycin and Zosyn-cultures show mixed bacterial keith 2. Diabetes mellitus on insulin consideration could be given to addition of a statin and an JENELLE inhibitor. 3. Anemia with a hemoglobin at 10.4 Currently doing well will Hep-Lock his IV fluids Clinical Quality Measures DVT/VTE Risk/Contraindication: Risk Factor Score Per Nursin RFS Level Per Nursing on Admit: 3=High JOANIE SARABIA MD Apr 30, 2018 10:45 am
[2018-04-30] MEDS: VANCOMYCIN 1,750 MG/NS 500 ML IVPB IV SCH ×4 (11:28→23:05)
[2018-04-30 16:10] VITALS: BP 127/89
[2018-05-01 00:09] VITALS: BP 125/63
[2018-05-01] MEDS: PIPERACILLIN SODIUM/TAZOBACTAM 4.5 GM in NS (IVPB) 100 ML IV SCH ×2 (01:16→08:38)
[2018-05-01] MEDS: HYDROcodone/APAP 5 MG/325 MG (LORTAB) TAB PO PRN (05:10)
[2018-05-01] MEDS: VENlafaxine XR 75 MG (EFFEXOR XR) CAP PO SCH (06:13)
[2018-05-01] MEDS: inSUlin ASPART (NovoLOG) 1 UNIT/0.01 ML (CHARGE PER UNIT) SC SCH ×2 (06:38→11:18)
--- NOTE | 2018-05-01 07:26 | Podiatry Progress Note ---
Standard Progress Note Progress Notes/Assess & Plan Date Seen by a Provider: May 01, 2018 Time Seen by a Provider: 07:22 Progress/Assessment & Plan Pt seen at today states he is feeling well. Denies F/C/N/V. LLE- active ROM intact to digits, CFT-WNL, Wound VAC intact minimal sanguinous drainage, calves supple nontender Wound VAC changed today wound is good 80% granular 20% fibrotic, no purulence/ fluctuance noted to the wound, erythema resolved, no bone exposed Final Diagnosis POD #3 Left 5th ray amputation -Cont wound VAC therapy -cont IV abx 4-6 weeks, with coverage for gamma hemolytic strep -NWB LLE -Will need home VAC arranged if possible. Contact Dr Lock with any concerns. Can possibly have VAC changes with Dr Castillo as out patient. -Follow up with Dr Lock as out patient this . ROSE LOCK DPM May 01, 2018 07:26
[2018-05-01 08:15] VITALS: BP 118/80
[2018-05-01] MEDS: ENOXAPARIN 40 MG/0.4 ML (LOVENOX) SYR SC SCH (08:38)
[2018-05-01] MEDS ORDERED: CFTR1PB IV (10:42)
[2018-05-01] MEDS ORDERED: ACHD5005 PO (10:42)
--- NOTE | 2018-05-01 10:49 | Discharge Inst-Simple/Standard ---
Discharge Inst-Standard Discharge Medications New, Converted or Re-Newed RX: RX on Chart Patient Instructions/Follow Up Plan of Care/Instructions/FU: Please continue to take your medications as written and follow up for your antibiotics as wound care as we discussed. Activity as Tolerated: No (Non weight bearing on left foot) Discharge Diet: ADA Diet Return to The Hospital For: Fevers, increasing pain, confusion, if you feel you are getting worse. Planned Outpatient Orders/Ref. Pneu Vac Indicated: Yes MERVAT PABLO MD May 01, 2018 10:49 am
--- NOTE | 2018-05-01 10:55 | Discharge Summary-Hospitalist ---
Diagnosis/Chief Complaint Date of Admission Apr 27, 2018 at 9:55 am Date of Discharge Discharge Date: May 01, 2018 Admission Diagnosis Assessment: Left DM foot ulcer with osteomyelitis confirmed on MRI Cellulitis Previous DM but stopped meds after lapband Plan: IV abx broad spectrum Dr Lynn consultation Discharge Diagnosis (1) Foot ulcer, left Status: Acute Assessment & Plan: s/p amputation of 5th toe Will follow up with Dr Lynn 05/04 (2) Osteomyelitis Status: Acute Assessment & Plan: Continue on Rocephin daily Needs wound vac Will follow up here for wound care and daily antibiotics (3) Diabetes mellitus Status: Chronic Assessment & Plan: [facility] follow up scheduled for management of diabetes BS relatively well controlled with just sliding scale Discharge Summary Procedures/Consulations Dr Lynn Discharge Physical Exam Allergies: Coded Allergies: No Known Drug Allergies (Unverified , 04/27/18) Vitals & I&Os Vital Signs Date Time Temp Pulse Resp B/P (MAP) Pulse Ox O2 Delivery O2 Flow Rate FiO2 05/01/18 08:15 98.6 67 18 118/80 (93) 97 Room Air General Appearance: No Apparent Distress, WD/WN Neurologic/Psychiatric: Alert, Oriented x3 Hospital Course Pt was admitted due to cellulitis with underlying osteomyelitis. He underwent amputation of the 5th digit on his left foot with Dr Lynn. He did well recovering from surgery and was discharged with a wound vac and arrangements for three times weekly wound care here and daily IV antibiotics with Rocephin here as well. An appointment was made to follow up with [facility] in [place] on 05/05. He was discharged home in stable condition with a walker to assist with his weight bearing status. Labs (last 24 hrs) Laboratory Tests 04/30/18 16:22: Glucometer 156H 04/30/18 21:22: Glucometer 224H 05/01/18 05:21: Glucometer 166H 05/01/18 10:43: Glucometer 223H Microbiology 04/27/18 Blood Culture - Preliminary, Resulted No growth 04/27/18 MRSA Screen - Final, Complete MRSA not isolated 04/27/18 Urine Culture - Final, Complete NO GROWTH 04/28/18 Gram Stain - Final, Resulted 04/28/18 Anaerobic Culture, Resulted Pending 04/28/18 Surgical Culture - Preliminary, Resulted Enterococcus faecalis Citrobacter Freundii Providencia rettgeri See Comments Patient resulted labs reviewed. Pending Labs Laboratory Tests 05/01/18 05:21: Glucometer 166 05/01/18 10:43: Glucometer 223 Discussion & Recommendations Discharge Planning: >30 minutes discharge planning Discharge Home Medications: Active Scripts Active Ceftriaxone (Ceftriaxone Sod) 1 Gm/Vial Soln 1 Gm IV DAILY Hydrocodone/Acetaminophen 5/325mg Tablet (Acetaminophen/Hydrocodone Bitart) 1 Tab Tab 1 Tab PO Q4H PRN Reported Clindamycin HCl 300 Mg Capsule 300 Mg PO Q6H #40 CAPSULES FILLED 04-17-18 Terbinafine HCl 250 Mg Tablet 250 Mg PO DAILY #30 FILLED 04-17-18 Ampicillin Trihydrate 500 Mg Capsule 500 Mg PO QID 10 Days 10 DAY SUPPLY FILLED 04-19-18 Flagyl (Metronidazole) 500 Mg Tablet 500 Mg PO TID 10 Days 10 DAY SUPPLY FILLED 04-24-18 Bactrim Ds Tablet (Sulfamethoxazole/Trimethoprim) 1 Each Tablet 1 Tab PO BID 10 Days 10 DAY SUPPLY FILLED 04-24-18 Dakin's (Sodium Hypochlorite) 473 Ml Solution UD Effexor Xr (Venlafaxine HCl) 75 Mg Cap.er.24h 75 Mg PO DAILY Instructions to patient/family Please see electronic discharge instructions given to patient. Clinical Quality Measures DVT/VTE Risk/Contraindication: Risk Factor Score Per Nursin RFS Level Per Nursing on Admit: 3=High Problem Qualifiers (1) Foot ulcer, left: Non-pressure ulcer stage: with necrosis of bone Qualified Codes: L97.524 - Non-pressure chronic ulcer of other part of left foot with necrosis of bone (2) Osteomyelitis: Osteomyelitis type: unspecified type Osteomyelitis location: foot Laterality : left Qualified Codes: M86.9 - Osteomyelitis, unspecified (3) Diabetes mellitus: Diabetes mellitus type: type 2 Diabetes mellitus director long term care insulin use: without director long term care use Diabetes mellitus complication status: with unspecified complications Qualified Codes: E11.8 - Type 2 diabetes mellitus with unspecified complications MERVAT PABLO MD May 01, 2018 10:55 am
[2018-05-01] MEDS ORDERED: cefTRIAXone FOR IV USE 1,000 MG in NS (IVPB) 50 ML IV NR (13:30)
--- NOTE | 2018-05-12 21:37 | OPERATIVE REPORT ---
DATE OF SERVICE: 04/28/2018 SURGEON: Alon Lokc DPM SALESPERSON [place] [employer] [place]: None. PREOPERATIVE DIAGNOSIS: Osteomyelitis, left fifth ray. POSTOPERATIVE DIAGNOSIS: Osteomyelitis, left fifth ray. PROCEDURE PERFORMED: 1. Left fifth ray resection. 2. Placement of antibiotic bone void spacer. 3. KCI wound VAC application. ANESTHESIA: General anesthesia. HEMOSTASIS: Locally controlled. ESTIMATED BLOOD LOSS: 25 mL. MATERIALS USED: Antibiotic bone void spacer, 3-0 nylon and KCI wound VAC. INTRAOPERATIVE INJECTABLES None. COMPLICATIONS: None. FINDINGS: Osteomyelitis. INDICATIONS FOR THE PROCEDURE: The patient is a 53-year-old male with a history of osteomyelitis and chronic wound to his left foot, now with acute abscess formation. He has been made aware of the risks and benefits of the surgery as well as alternatives to undergoing and signed consent prior to being taken back to the OR. DESCRIPTION OF PROCEDURE IN DETAIL: Under mild sedation, the patient was brought to the OR and placed on the operating table in supine position. Following administration of general anesthesia, the left lower extremity was scrubbed, prepped and draped in aseptic manner. Proper timeout was performed. Left lower extremity is identified as surgical site. Next, a wound circumferencing the fifth toe and extending back along the fifth metatarsal base was made and encompassed the wound. There was a wound noted to the plantar foot as well as to the dorsal aspect of the foot, it tracked down to the bone. There was purulent drainage noted from the area of the wound. The wound encompassed the entire fifth ray and was made down to the level of the fifth metatarsal base. The most proximal one third of the fifth metatarsal was then cut using a sagittal saw and the fifth ray was resected and passed from the surgical field. The bone was noted to be very brittle, discolored and with drainage noted to the distal aspect of the fifth metatarsal that is consistent with osteomyelitis. There was also some abscess formation and mild purulent drainage that was expressed from the area of the wound. Deep cultures were taken and the fifth metatarsal was sent for pathological specimen. Also a proximal portion of the fifth metatarsal base was also resected and sent for pathological specimen to try and establish clean margins of bone. The wound was then flushed with copious amounts of sterile saline under pulse lavage. The proximal aspect of the wound was sutured closed using 2-0 and 3-0 nylon. Next, antibiotic beads were made on the back table using synthetic calcium sulfate, vancomycin and tobramycin were mixed into the beads. The beads were allowed to dry and then placed bone void spacer into the area of the void noted from the fifth metatarsal and fifth ray. KCI wound VAC was then applied over the wound and set to 125 mmHg and there was an adequate suction noted to the area of the wound. The foot was then dressed with a dry sterile dressing consisting of 4 x 4's, cast padding and Vincent wrap. The patient tolerated the procedure and anesthesia well. He was transferred from OR to recovery with vital signs stable and vascular status intact to left lower extremity. Job ID: [id number] DocumentID: [id number] Dictated Date: 05/12/2018 13:09:40 Senior Erp Consultant Date: 05/12/2018 21:37:18 Dictated By: ALON LOCK DPM
== END 2018-05-01 15:30 | disposition home or self-care (01) | DRG 617 ==
LOC: 4TH 09:55
PROVIDERS: ADMIT Internal Medicine; ATTEND Internal Medicine
PROC: 0QBP0ZZ Excision of Left Metatarsal, Open Approach (ICD-10-PCS; 2018-04-28)
PROC: 0Y6Y0Z0 Detachment at Left 5th Toe, Complete, Open Approach (ICD-10-PCS; principal; 2018-04-28 16:27)
DX: E11.69 Type 2 diabetes mellitus with other specified complication (principal); M86.9 Osteomyelitis, unspecified; E11.621 Type 2 diabetes mellitus with foot ulcer; L97.524 Non-pressure chronic ulcer of other part of left foot with necrosis of bone; E11.65 Type 2 diabetes mellitus with hyperglycemia; D64.9 Anemia, unspecified; Z98.84 Bariatric surgery status
CPT/HCPCS: 36415; 71045; 78315; 80053; 80202; 81000; 82962; 83605; 85025; 87040; 87070; 87075; 87077; 87081; 87088; 87185; 87186; 87205; 88305; 88311; 93005

== ENCOUNTER 2018-05-08 10:57 | Outpatient (CLI) | payer OTHER ==
[~2018-05-08] VITALS: Ht 177.8 cm; Wt 112.7 kg
[2018-05-08 11:16] VITALS: BP 138/76
[2018-05-08 12:25] VITALS: BP 138/76
== END 2018-05-08 12:25 | disposition home or self-care (01) ==
LOC: SDC 10:57
PROVIDERS: ATTEND Podiatrist
DX: M86.9 Osteomyelitis, unspecified (principal)
CPT/HCPCS: 97605

== ENCOUNTER → 2018-05-10 | Outpatient (CLI) | payer OTHER | LOC: WOUNDCARE 12:02 | PROVIDERS: ATTEND Orthopaedic Surgery Hand Surgery | DX: E11.621 Type 2 diabetes mellitus with foot ulcer (principal); L84 Corns and callosities; L97.522 Non-pressure chronic ulcer of other part of left foot with fat layer exposed | CPT/HCPCS: 11042; 11045; 97605 ==

== ENCOUNTER → 2018-05-24 | Outpatient (CLI) | payer OTHER | LOC: WOUNDCARE 12:18 | PROVIDERS: ATTEND Orthopaedic Surgery Hand Surgery | DX: E11.621 Type 2 diabetes mellitus with foot ulcer (principal); L97.522 Non-pressure chronic ulcer of other part of left foot with fat layer exposed; L84 Corns and callosities | CPT/HCPCS: 97605 ==

== ENCOUNTER → 2018-05-29 | Outpatient (CLI) | payer OTHER | LOC: WOUNDCARE 12:51 | PROVIDERS: ATTEND Nurse Practitioner | DX: E11.621 Type 2 diabetes mellitus with foot ulcer (principal); L97.522 Non-pressure chronic ulcer of other part of left foot with fat layer exposed; L84 Corns and callosities | CPT/HCPCS: 97605 ==

== ENCOUNTER → 2018-05-31 | Outpatient (CLI) | payer OTHER | LOC: WOUNDCARE 12:08 | PROVIDERS: ATTEND Orthopaedic Surgery Hand Surgery | DX: L97.522 Non-pressure chronic ulcer of other part of left foot with fat layer exposed (principal); E11.621 Type 2 diabetes mellitus with foot ulcer; L84 Corns and callosities | CPT/HCPCS: 11042; 97605 ==

== ENCOUNTER 2018-06-02 10:10 | Outpatient (RCR) | payer OTHER ==
[2018-05-02 13:05] VITALS: BP 110/81
[2018-05-02] MEDS: cefTRIAXone 1 GM/NS 50 ML IVPB IV SCH ×2 (13:23)
[2018-05-03] MEDS: cefTRIAXone 1 GM/NS 50 ML IVPB IV SCH ×2 (13:00)
[2018-05-03 13:32] VITALS: BP 124/71
[2018-05-04] MEDS: cefTRIAXone 1 GM/NS 50 ML IVPB IV SCH ×2 (10:36)
[2018-05-04 11:10] VITALS: BP 120/69
[2018-05-05] MEDS: cefTRIAXone 1 GM/NS 50 ML IVPB IV SCH ×2 (10:43)
--- NOTE | 2018-05-05 10:56 | Physician Query-Final Dx ---
KASEY ELISE 05/05/18 1056: Clinic Account Progress/Dx Physician Query: Please give a diagnosis for the Ceftriaxone treatment thank you Date of Service May 05, 2018 at 10:33 MERVAT PABLO MD 05/05/18 1657: Clinic Account Progress/Dx Physician Query: Please give diagnosis Osteomyelitis DIAGNOSIS: Diagnosis Osteomyelitis KASEY ELISE May 05, 2018 10:56 MERVAT PABLO MD May 05, 2018 16:57
[2018-05-05 11:30] VITALS: BP 115/67
[2018-05-06] MEDS: cefTRIAXone 1 GM/NS 50 ML IVPB IV SCH ×2 (09:20)
[2018-05-06 09:45] VITALS: BP 115/82
[2018-05-07] MEDS: cefTRIAXone 1 GM/NS 50 ML IVPB IV SCH ×2 (09:05)
[2018-05-07 09:35] VITALS: BP 133/70
[2018-05-08] MEDS: cefTRIAXone 1 GM/NS 50 ML IVPB IV SCH ×2 (09:57)
[2018-05-08 10:00] VITALS: BP 138/76
[2018-05-09 10:44] VITALS: BP 138/76
[2018-05-09] MEDS: cefTRIAXone 1 GM/NS 50 ML IVPB IV SCH ×2 (10:47)
[2018-05-10] MEDS: cefTRIAXone 1 GM/NS 50 ML IVPB IV SCH ×2 (11:26)
[2018-05-10 12:00] VITALS: BP 131/70
[2018-05-11] MEDS: cefTRIAXone 1 GM/NS 50 ML IVPB IV SCH ×2 (13:15)
[2018-05-11 13:45] VITALS: BP 123/76
[2018-05-12 11:00] VITALS: BP 129/67
[2018-05-12] MEDS: cefTRIAXone 1 GM/NS 50 ML IVPB IV SCH ×2 (11:14)
[2018-05-13] MEDS: cefTRIAXone 1 GM/NS 50 ML IVPB IV SCH ×2 (08:10)
[2018-05-13 08:40] VITALS: BP 108/72
[2018-05-14] MEDS: cefTRIAXone 1 GM/NS 50 ML IVPB IV SCH ×2 (08:33)
[2018-05-14 09:09] VITALS: BP 125/87
[2018-05-15] MEDS: cefTRIAXone 1 GM/NS 50 ML IVPB IV SCH ×2 (09:40)
[2018-05-15 09:50] VITALS: BP 122/68
[2018-05-16] MEDS: cefTRIAXone 1 GM/NS 50 ML IVPB IV SCH ×2 (12:48)
[2018-05-16 12:50] VITALS: BP 113/83
[2018-05-17] MEDS: cefTRIAXone 1 GM/NS 50 ML IVPB IV SCH ×2 (09:54)
[2018-05-17 09:57] VITALS: BP 122/74
[2018-05-18] MEDS: cefTRIAXone 1 GM/NS 50 ML IVPB IV SCH ×2 (10:07)
[2018-05-18 10:40] VITALS: BP 118/81
[2018-05-19] MEDS: cefTRIAXone 1 GM/NS 50 ML IVPB IV SCH ×2 (12:00)
[2018-05-19 12:30] VITALS: BP 114/65
[2018-05-20] MEDS: cefTRIAXone 1 GM/NS 50 ML IVPB IV SCH ×2 (08:07)
[2018-05-20 08:45] VITALS: BP 105/62
[2018-05-21 12:11] VITALS: BP 128/74
[2018-05-21] MEDS: cefTRIAXone 1 GM/NS 50 ML IVPB IV SCH ×2 (12:16)
[2018-05-21 12:45] VITALS: BP 128/74
[2018-05-22] MEDS: cefTRIAXone 1 GM/NS 50 ML IVPB IV SCH ×2 (16:00)
[2018-05-22 16:32] VITALS: BP 120/73
[2018-05-23 11:12] VITALS: BP 107/72
--- NOTE | 2018-05-23 11:58 | Diagnostic Imaging Report ---
INDICATION: PICC line. COMPARISON: 04/28/2018. FINDINGS: Left PICC catheter distal tip projects over the upper SVC level. The lungs are clear. IMPRESSION: PICC catheter projects at the SVC at its [id number] third. Clear lungs with no pleural abnormality. Dictated by: Dictated on workstation # [id number]
[2018-05-23] MEDS: cefTRIAXone 1 GM/NS 50 ML IVPB IV SCH ×2 (12:19)
[2018-05-24] MEDS: cefTRIAXone 1 GM/NS 50 ML IVPB IV SCH ×2 (13:50)
[2018-05-24 14:25] VITALS: BP 127/69
[2018-05-25] MEDS: cefTRIAXone 1 GM/NS 50 ML IVPB IV SCH ×2 (13:20)
[2018-05-25 13:51] VITALS: BP 115/71
[2018-05-26] MEDS: cefTRIAXone 1 GM/NS 50 ML IVPB IV SCH ×2 (10:38)
[2018-05-26 10:44] VITALS: BP 128/79
[2018-05-27] MEDS: cefTRIAXone 1 GM/NS 50 ML IVPB IV SCH ×2 (10:59)
[2018-05-27 11:04] VITALS: BP 110/71
[2018-05-28 11:03] VITALS: BP 120/78
[2018-05-28] MEDS: cefTRIAXone 1 GM/NS 50 ML IVPB IV SCH ×2 (11:05)
[2018-05-28 11:35] VITALS: BP 120/78
[2018-05-29] MEDS: cefTRIAXone 1 GM/NS 50 ML IVPB IV SCH ×2 (12:15)
[2018-05-29 12:47] VITALS: BP 108/63
[2018-05-30 10:40] VITALS: BP 119/80
[2018-05-30] MEDS: cefTRIAXone 1 GM/NS 50 ML IVPB IV SCH ×2 (10:47)
[2018-05-31] MEDS: cefTRIAXone 1 GM/NS 50 ML IVPB IV SCH ×2 (11:31)
[2018-05-31 12:05] VITALS: BP 102/72
[~2018-06-02] VITALS: Ht 177.8 cm; Wt 112.4 kg
[~2018-06-02 10:10] MED LIST changes: +ALTEPLASE 2 MG (CATHFLO) IV ONE; +WATER (STERILE) FOR INJECTION 20 ML ONE
[2018-06-02 12:25] VITALS: BP 116/75
== END 2018-06-02 10:33 | disposition home or self-care (01) ==
LOC: SDC 10:10
PROVIDERS: ATTEND Family Medicine
DX: M86.9 Osteomyelitis, unspecified (principal)
CPT/HCPCS: 71045; 76937; 96365; 99211

== ENCOUNTER → 2018-06-05 | Outpatient (CLI) | payer OTHER ==
[~2018-06-05] MED LIST changes: -ALTEPLASE 2 MG (CATHFLO) IV ONE; -WATER (STERILE) FOR INJECTION 20 ML ONE
== END ==
LOC: WOUNDCARE 12:03
PROVIDERS: ATTEND Nurse Practitioner
DX: E11.621 Type 2 diabetes mellitus with foot ulcer (principal); L97.522 Non-pressure chronic ulcer of other part of left foot with fat layer exposed; L84 Corns and callosities
CPT/HCPCS: 97605

== ENCOUNTER → 2018-06-07 | Outpatient (CLI) | payer OTHER | LOC: WOUNDCARE 12:40 | PROVIDERS: ATTEND Orthopaedic Surgery Hand Surgery | DX: E11.621 Type 2 diabetes mellitus with foot ulcer (principal); L97.522 Non-pressure chronic ulcer of other part of left foot with fat layer exposed; L84 Corns and callosities | CPT/HCPCS: 11042 ==

== ENCOUNTER → 2018-06-14 | Outpatient (CLI) | payer OTHER | LOC: WOUNDCARE 10:33 | PROVIDERS: ATTEND Orthopaedic Surgery Hand Surgery | DX: E11.621 Type 2 diabetes mellitus with foot ulcer (principal); L97.522 Non-pressure chronic ulcer of other part of left foot with fat layer exposed; L84 Corns and callosities | CPT/HCPCS: 11042 ==

== ENCOUNTER → 2018-06-28 | Outpatient (CLI) | payer OTHER | LOC: WOUNDCARE 09:14 | PROVIDERS: ATTEND Surgery | DX: E11.621 Type 2 diabetes mellitus with foot ulcer (principal); L97.522 Non-pressure chronic ulcer of other part of left foot with fat layer exposed | CPT/HCPCS: 11042; 87070; 87075; 87077; 87205 ==

== ENCOUNTER → 2018-07-05 | Outpatient (CLI) | payer OTHER | LOC: WOUNDCARE 08:58 | PROVIDERS: ATTEND Surgery | DX: E11.621 Type 2 diabetes mellitus with foot ulcer (principal); L97.522 Non-pressure chronic ulcer of other part of left foot with fat layer exposed; E11.42 Type 2 diabetes mellitus with diabetic polyneuropathy | CPT/HCPCS: 11042 ==

== ENCOUNTER → 2018-07-12 | Outpatient (CLI) | payer OTHER | LOC: WOUNDCARE 08:48 | PROVIDERS: ATTEND Surgery | DX: E11.621 Type 2 diabetes mellitus with foot ulcer (principal); L97.522 Non-pressure chronic ulcer of other part of left foot with fat layer exposed; E11.42 Type 2 diabetes mellitus with diabetic polyneuropathy | CPT/HCPCS: 11042 ==

== ENCOUNTER → 2018-07-19 | Outpatient (CLI) | payer OTHER | LOC: WOUNDCARE 08:57 | PROVIDERS: ATTEND Surgery | DX: E11.621 Type 2 diabetes mellitus with foot ulcer (principal); L97.522 Non-pressure chronic ulcer of other part of left foot with fat layer exposed; E11.42 Type 2 diabetes mellitus with diabetic polyneuropathy | CPT/HCPCS: 11042; 87070; 87075; 87077; 87205 ==

== ENCOUNTER → 2018-07-19 | Outpatient (CLI) | payer OTHER ==
--- NOTE | 2018-07-19 13:52 | Diagnostic Imaging Report ---
INDICATION: Ulcer along the lateral aspect of the left foot. Time of exam 10:45 a.m. COMPARISON: Comparison is made with prior foot radiographs from 04/24/2018. FINDINGS: Since prior radiographs patient has had the fifth toe as well as the distal half of the fifth metatarsal resected. Resected margins appear to be smooth. There is a large soft tissue defect in the lateral foot at the level of the distal metatarsals and MTP joints. Remaining first through fourth metatarsals as well as the proximal half of the fifth metatarsal are intact without evidence of bony destructive changes. Phalanges are intact. Midfoot and hindfoot are unremarkable. IMPRESSION: Large ulcer crater at the lateral aspect of the left foot. No bony destructive changes are seen to suggest acute osteomyelitis. Postsurgical changes are noted, as described. Dictated by: Dictated on workstation # [id number]
== END ==
LOC: RAD 10:32
PROVIDERS: ATTEND Surgery
DX: E11.621 Type 2 diabetes mellitus with foot ulcer (principal); E11.42 Type 2 diabetes mellitus with diabetic polyneuropathy; L97.522 Non-pressure chronic ulcer of other part of left foot with fat layer exposed; Z98.890 Other specified postprocedural states
CPT/HCPCS: 73630

== ENCOUNTER → 2018-07-26 | Outpatient (CLI) | payer OTHER | LOC: WOUNDCARE 09:02 | PROVIDERS: ATTEND Surgery | DX: E11.621 Type 2 diabetes mellitus with foot ulcer (principal); E11.42 Type 2 diabetes mellitus with diabetic polyneuropathy; L97.522 Non-pressure chronic ulcer of other part of left foot with fat layer exposed | CPT/HCPCS: 11042 ==

== ENCOUNTER → 2018-08-02 | Outpatient (CLI) | payer OTHER | LOC: WOUNDCARE 08:49 | PROVIDERS: ATTEND Surgery | DX: E11.621 Type 2 diabetes mellitus with foot ulcer (principal); L97.522 Non-pressure chronic ulcer of other part of left foot with fat layer exposed; E11.42 Type 2 diabetes mellitus with diabetic polyneuropathy | CPT/HCPCS: 11042 ==

== ENCOUNTER → 2018-08-09 | Outpatient (CLI) | payer OTHER | LOC: LAB 11:22 | PROVIDERS: ATTEND Surgery | DX: E11.621 Type 2 diabetes mellitus with foot ulcer (principal); L97.522 Non-pressure chronic ulcer of other part of left foot with fat layer exposed; E11.42 Type 2 diabetes mellitus with diabetic polyneuropathy | CPT/HCPCS: 36415; 83036 ==

== ENCOUNTER → 2018-08-09 | Outpatient (CLI) | payer OTHER | LOC: WOUNDCARE 09:01 | PROVIDERS: ATTEND Surgery | DX: E11.621 Type 2 diabetes mellitus with foot ulcer (principal); L97.522 Non-pressure chronic ulcer of other part of left foot with fat layer exposed; E11.42 Type 2 diabetes mellitus with diabetic polyneuropathy | CPT/HCPCS: 11042 ==

== ENCOUNTER → 2018-08-11 | Outpatient (CLI) | payer OTHER | LOC: WOUNDCARE 09:16 | PROVIDERS: ATTEND Surgery | DX: E11.621 Type 2 diabetes mellitus with foot ulcer (principal); L97.522 Non-pressure chronic ulcer of other part of left foot with fat layer exposed; E11.42 Type 2 diabetes mellitus with diabetic polyneuropathy | CPT/HCPCS: 29445 ==

== ENCOUNTER → 2018-08-14 | Outpatient (CLI) | payer OTHER | LOC: WOUNDCARE 11:16 | PROVIDERS: ATTEND Surgery | DX: E11.621 Type 2 diabetes mellitus with foot ulcer (principal); L97.522 Non-pressure chronic ulcer of other part of left foot with fat layer exposed; E11.42 Type 2 diabetes mellitus with diabetic polyneuropathy | CPT/HCPCS: 11042 ==

== ENCOUNTER → 2018-08-18 | Outpatient (CLI) | payer OTHER | LOC: WOUNDCARE 08:51 | PROVIDERS: ATTEND Surgery | DX: E11.621 Type 2 diabetes mellitus with foot ulcer (principal); E11.42 Type 2 diabetes mellitus with diabetic polyneuropathy; L97.522 Non-pressure chronic ulcer of other part of left foot with fat layer exposed | CPT/HCPCS: 11042 ==

== ENCOUNTER → 2018-08-23 | Outpatient (CLI) | payer OTHER | LOC: WOUNDCARE 08:46 | PROVIDERS: ATTEND Surgery | DX: E11.621 Type 2 diabetes mellitus with foot ulcer (principal); L97.522 Non-pressure chronic ulcer of other part of left foot with fat layer exposed; E11.42 Type 2 diabetes mellitus with diabetic polyneuropathy | CPT/HCPCS: 11042; 87070; 87077; 87186; 87205 ==

== ENCOUNTER → 2018-08-30 | Outpatient (CLI) | payer OTHER | LOC: WOUNDCARE 09:00 | PROVIDERS: ATTEND Surgery | DX: E11.621 Type 2 diabetes mellitus with foot ulcer (principal); L97.522 Non-pressure chronic ulcer of other part of left foot with fat layer exposed; E11.42 Type 2 diabetes mellitus with diabetic polyneuropathy | CPT/HCPCS: 11042 ==

== ENCOUNTER → 2018-09-06 | Outpatient (CLI) | payer OTHER | LOC: WOUNDCARE 08:52 | PROVIDERS: ATTEND Surgery | DX: E11.621 Type 2 diabetes mellitus with foot ulcer (principal); L97.522 Non-pressure chronic ulcer of other part of left foot with fat layer exposed; E11.42 Type 2 diabetes mellitus with diabetic polyneuropathy | CPT/HCPCS: 11042 ==

== ENCOUNTER → 2018-09-13 | Outpatient (CLI) | payer OTHER | LOC: WOUNDCARE 08:49 | PROVIDERS: ATTEND Surgery | DX: E11.621 Type 2 diabetes mellitus with foot ulcer (principal); L97.522 Non-pressure chronic ulcer of other part of left foot with fat layer exposed; E11.42 Type 2 diabetes mellitus with diabetic polyneuropathy | CPT/HCPCS: 11042; 87070; 87205 ==

== ENCOUNTER → 2018-09-18 | Outpatient (CLI) | payer OTHER | LOC: WOUNDCARE 13:12 | PROVIDERS: ATTEND Surgery | DX: E11.621 Type 2 diabetes mellitus with foot ulcer (principal); L97.522 Non-pressure chronic ulcer of other part of left foot with fat layer exposed; E11.42 Type 2 diabetes mellitus with diabetic polyneuropathy | CPT/HCPCS: 11042 ==

== ENCOUNTER → 2018-09-22 | Outpatient (CLI) | payer OTHER | LOC: WOUNDCARE 08:10 | PROVIDERS: ATTEND Surgery | DX: E11.621 Type 2 diabetes mellitus with foot ulcer (principal); E11.42 Type 2 diabetes mellitus with diabetic polyneuropathy; L97.522 Non-pressure chronic ulcer of other part of left foot with fat layer exposed | CPT/HCPCS: 29445 ==

== ENCOUNTER → 2018-09-26 | Outpatient (CLI) | payer OTHER | LOC: WOUNDCARE 14:23 | PROVIDERS: ATTEND Surgery | DX: E11.621 Type 2 diabetes mellitus with foot ulcer (principal); E11.42 Type 2 diabetes mellitus with diabetic polyneuropathy; L97.522 Non-pressure chronic ulcer of other part of left foot with fat layer exposed ==

== ENCOUNTER → 2018-09-29 | Outpatient (CLI) | payer OTHER | LOC: WOUNDCARE 08:37 | PROVIDERS: ATTEND Surgery | DX: E11.621 Type 2 diabetes mellitus with foot ulcer (principal); E11.42 Type 2 diabetes mellitus with diabetic polyneuropathy; L97.522 Non-pressure chronic ulcer of other part of left foot with fat layer exposed | CPT/HCPCS: 29445 ==

== ENCOUNTER → 2018-10-03 | Outpatient (CLI) | payer OTHER | LOC: WOUNDCARE 13:37 | PROVIDERS: ATTEND Surgery | DX: E11.621 Type 2 diabetes mellitus with foot ulcer (principal); E11.42 Type 2 diabetes mellitus with diabetic polyneuropathy; L97.522 Non-pressure chronic ulcer of other part of left foot with fat layer exposed | CPT/HCPCS: 87070; 87077; 87205 ==

== ENCOUNTER → 2018-10-06 | Outpatient (CLI) | payer OTHER | LOC: WOUNDCARE 08:41 | PROVIDERS: ATTEND Surgery | DX: E11.621 Type 2 diabetes mellitus with foot ulcer (principal); E11.42 Type 2 diabetes mellitus with diabetic polyneuropathy; L97.522 Non-pressure chronic ulcer of other part of left foot with fat layer exposed | CPT/HCPCS: 11042 ==

== ENCOUNTER → 2018-10-09 | Outpatient (CLI) | payer OTHER | LOC: WOUNDCARE 13:29 | PROVIDERS: ATTEND Surgery | DX: E11.621 Type 2 diabetes mellitus with foot ulcer (principal); L97.522 Non-pressure chronic ulcer of other part of left foot with fat layer exposed; E11.42 Type 2 diabetes mellitus with diabetic polyneuropathy | CPT/HCPCS: 11042 ==

== ENCOUNTER → 2018-10-11 | Outpatient (CLI) | payer OTHER | LOC: WOUNDCARE 13:41 | PROVIDERS: ATTEND Surgery | DX: E11.621 Type 2 diabetes mellitus with foot ulcer (principal); L97.522 Non-pressure chronic ulcer of other part of left foot with fat layer exposed; E11.42 Type 2 diabetes mellitus with diabetic polyneuropathy | CPT/HCPCS: 11042 ==

== ENCOUNTER → 2018-10-17 | Outpatient (CLI) | payer OTHER | LOC: WOUNDCARE 13:45 | PROVIDERS: ATTEND Surgery | DX: E11.621 Type 2 diabetes mellitus with foot ulcer (principal); E11.42 Type 2 diabetes mellitus with diabetic polyneuropathy; L97.522 Non-pressure chronic ulcer of other part of left foot with fat layer exposed | CPT/HCPCS: 11042 ==

== ENCOUNTER → 2018-10-20 | Outpatient (CLI) | payer OTHER | LOC: WOUNDCARE 08:45 | PROVIDERS: ATTEND Surgery | DX: E11.621 Type 2 diabetes mellitus with foot ulcer (principal); E11.42 Type 2 diabetes mellitus with diabetic polyneuropathy; L97.522 Non-pressure chronic ulcer of other part of left foot with fat layer exposed | CPT/HCPCS: 11042; 87070; 87077; 87186; 87205 ==

== ENCOUNTER → 2018-10-24 | Outpatient (CLI) | payer SELFPAY | LOC: WOUNDCARE 13:32 | PROVIDERS: ATTEND Surgery | DX: E11.621 Type 2 diabetes mellitus with foot ulcer (principal); E11.42 Type 2 diabetes mellitus with diabetic polyneuropathy; L97.522 Non-pressure chronic ulcer of other part of left foot with fat layer exposed | CPT/HCPCS: 11042 ==

== ENCOUNTER → 2018-10-27 | Outpatient (CLI) | payer OTHER | LOC: WOUNDCARE 08:59 | PROVIDERS: ATTEND Surgery | DX: E11.621 Type 2 diabetes mellitus with foot ulcer (principal); E11.42 Type 2 diabetes mellitus with diabetic polyneuropathy; L97.522 Non-pressure chronic ulcer of other part of left foot with fat layer exposed | CPT/HCPCS: 11042 ==

== ENCOUNTER → 2018-10-31 | Outpatient (CLI) | payer OTHER | LOC: WOUNDCARE 13:34 | PROVIDERS: ATTEND Surgery | DX: E11.621 Type 2 diabetes mellitus with foot ulcer (principal); E11.42 Type 2 diabetes mellitus with diabetic polyneuropathy; L97.522 Non-pressure chronic ulcer of other part of left foot with fat layer exposed | CPT/HCPCS: 11042 ==

== ENCOUNTER → 2018-11-08 | Outpatient (CLI) | payer OTHER | LOC: WOUNDCARE 15:16 | PROVIDERS: ATTEND Surgery | DX: E11.621 Type 2 diabetes mellitus with foot ulcer (principal); L97.522 Non-pressure chronic ulcer of other part of left foot with fat layer exposed; E11.42 Type 2 diabetes mellitus with diabetic polyneuropathy | CPT/HCPCS: 11042; 87070; 87077; 87186; 87205 ==

== ENCOUNTER → 2018-11-15 | Outpatient (CLI) | payer OTHER | LOC: WOUNDCARE 13:38 | PROVIDERS: ATTEND Surgery | DX: E11.621 Type 2 diabetes mellitus with foot ulcer (principal); L97.522 Non-pressure chronic ulcer of other part of left foot with fat layer exposed; E11.42 Type 2 diabetes mellitus with diabetic polyneuropathy | CPT/HCPCS: 11042 ==

== ENCOUNTER → 2018-11-17 | Outpatient (CLI) | payer OTHER | LOC: WOUNDCARE 08:52 | PROVIDERS: ATTEND Surgery | DX: E11.621 Type 2 diabetes mellitus with foot ulcer (principal); E11.42 Type 2 diabetes mellitus with diabetic polyneuropathy; L97.522 Non-pressure chronic ulcer of other part of left foot with fat layer exposed | CPT/HCPCS: 11042 ==

== ENCOUNTER → 2018-11-21 | Outpatient (CLI) | payer SELFPAY ==
[2018-11-21 14:30] LABS: BASOPHILS % (AUTO) 0 % (0-10); EOSINOPHILS # (AUTO) 0.1 10^3/uL (0.0-0.3); EOSINOPHILS % (AUTO) 3 % (0-10); HEMATOCRIT 40 % (40-54); HEMOGLOBIN 13.5 G/DL (13.3-17.7); LYMPHOCYTES # (AUTO) 1.9 X 10^3 (1.0-4.0); LYMPHOCYTES % (AUTO) 33 % (12-44); MEAN CORPUSCULAR HEMOGLOBIN 30 PG (25-34); MEAN CORPUSCULAR HGB CONC 34 G/DL (32-36); MEAN CORPUSCULAR VOLUME 87 FL (80-99); MEAN PLATELET VOLUME 9.7 FL (7.4-10.4); MONOCYTES # (AUTO) 0.6 X 10^3 (0.0-1.0); MONOCYTES % (AUTO) 11 % (0-12); NEUTROPHILS # (AUTO) 2.9 X 10^3 (1.8-7.8); NEUTROPHILS % (AUTO) 53 % (42-75); PLATELET COUNT 281 10^3/uL (130-400); RED CELL DISTRIBUTION WIDTH 14.5 % (10.0-14.5); WHITE BLOOD COUNT 5.6 10^3/uL (4.3-11.0)
--- NOTE | 2018-11-21 14:49 | Diagnostic Imaging Report ---
INDICATION: Osteomyelitis, nonpressure chronic ulcer. COMPARISON: 12/17/2018. TECHNIQUE: Three radiographs of the left foot are dated November 21, 2018. FINDINGS: Amputation of the fifth digit at the level of the mid fifth metatarsal is again identified. Heterotopic ossification is present within the region, slightly increased since the prior examination. No acute fracture or dislocation. No destructive osseous process. Advanced degenerative changes are identified within the mid foot with prominent osteophyte formation. Small posterior and plantar calcaneal enthesophytes. Scattered vascular calcifications. Soft tissue swelling. IMPRESSION: Amputation of the fifth digit at the level of the mid fifth metatarsal shaft with increasing heterotopic ossification. No evidence of osseous destruction to suggest osteomyelitis; however, if there remains clinical concern, followup radiographs would be recommended in 10-14 days to reevaluate. Alternatively, a three-phase Nuclear Medicine bone scan or MRI could be considered. Soft tissue swelling of the foot. Dictated by: Dictated on workstation # [id number]
[2018-11-21 14:54] LABS: ALANINE AMINOTRANSFERASE 12 U/L (0-55); ALBUMIN 4.5 GM/DL (3.2-4.5); ALKALINE PHOSPHATASE 63 U/L (40-136); BILIRUBIN,TOTAL 0.4 MG/DL (0.1-1.0); BUN/CREATININE RATIO 12; CALCIUM 10.2 MG/DL (8.5-10.1); CARBON DIOXIDE 23 MMOL/L (21-32); CHLORIDE 104 MMOL/L (98-107); CREATININE SERUM 1.09 MG/DL (0.60-1.30); GFR ESTIMATED > 60; GLUCOSE 94 MG/DL (70-105); POTASSIUM 4.5 MMOL/L (3.6-5.0); SODIUM 139 MMOL/L (135-145); TOTAL PROTEIN 8.3 GM/DL (6.4-8.2)
== END ==
LOC: RAD 14:10
PROVIDERS: ATTEND Surgery
DX: E11.621 Type 2 diabetes mellitus with foot ulcer (principal); L97.524 Non-pressure chronic ulcer of other part of left foot with necrosis of bone; E11.42 Type 2 diabetes mellitus with diabetic polyneuropathy; Z89.422 Acquired absence of other left toe(s)
CPT/HCPCS: 36415; 73630; 80053; 83036; 85025

== ENCOUNTER → 2018-11-24 | Outpatient (CLI) | payer OTHER | LOC: WOUNDCARE 08:18 | PROVIDERS: ATTEND Surgery | DX: E11.621 Type 2 diabetes mellitus with foot ulcer (principal); L97.526 Non-pressure chronic ulcer of other part of left foot with bone involvement without evidence of necrosis; E11.69 Type 2 diabetes mellitus with other specified complication; M86.472 Chronic osteomyelitis with draining sinus, left ankle and foot; E11.42 Type 2 diabetes mellitus with diabetic polyneuropathy | CPT/HCPCS: 11043; 87070; 87077; 87186; 87205 ==

== ENCOUNTER → 2018-11-28 | Outpatient (CLI) | payer OTHER | LOC: WOUNDCARE 13:46 | PROVIDERS: ATTEND Surgery | DX: E11.621 Type 2 diabetes mellitus with foot ulcer (principal); L97.526 Non-pressure chronic ulcer of other part of left foot with bone involvement without evidence of necrosis; M86.472 Chronic osteomyelitis with draining sinus, left ankle and foot; E11.42 Type 2 diabetes mellitus with diabetic polyneuropathy | CPT/HCPCS: 11043 ==

== ENCOUNTER → 2018-12-11 | Outpatient (CLI) | payer OTHER | LOC: WOUNDCARE 08:15 | PROVIDERS: ATTEND Surgery | DX: E11.621 Type 2 diabetes mellitus with foot ulcer (principal); L97.526 Non-pressure chronic ulcer of other part of left foot with bone involvement without evidence of necrosis; E11.69 Type 2 diabetes mellitus with other specified complication; M86.472 Chronic osteomyelitis with draining sinus, left ankle and foot; E11.42 Type 2 diabetes mellitus with diabetic polyneuropathy | CPT/HCPCS: 15275 ==

== ENCOUNTER → 2018-12-18 | Outpatient (CLI) | payer OTHER | LOC: WOUNDCARE 08:05 | PROVIDERS: ATTEND Surgery | DX: E11.621 Type 2 diabetes mellitus with foot ulcer (principal); L97.526 Non-pressure chronic ulcer of other part of left foot with bone involvement without evidence of necrosis; M86.472 Chronic osteomyelitis with draining sinus, left ankle and foot; E11.42 Type 2 diabetes mellitus with diabetic polyneuropathy | CPT/HCPCS: 15275 ==

== ENCOUNTER → 2018-12-25 | Outpatient (CLI) | payer OTHER | LOC: WOUNDCARE 08:11 | PROVIDERS: ATTEND Surgery | DX: E11.621 Type 2 diabetes mellitus with foot ulcer (principal); L97.526 Non-pressure chronic ulcer of other part of left foot with bone involvement without evidence of necrosis; E11.69 Type 2 diabetes mellitus with other specified complication; M86.472 Chronic osteomyelitis with draining sinus, left ankle and foot; E11.42 Type 2 diabetes mellitus with diabetic polyneuropathy | CPT/HCPCS: 11042; 87070; 87077; 87186; 87205; 99183 ==

== ENCOUNTER → 2019-01-01 | Outpatient (CLI) | payer OTHER | LOC: WOUNDCARE 08:01 | PROVIDERS: ATTEND Surgery | DX: L97.522 Non-pressure chronic ulcer of other part of left foot with fat layer exposed (principal); E11.621 Type 2 diabetes mellitus with foot ulcer; E11.40 Type 2 diabetes mellitus with diabetic neuropathy, unspecified; M86.472 Chronic osteomyelitis with draining sinus, left ankle and foot | CPT/HCPCS: 11042 ==

== ENCOUNTER → 2019-01-08 | Outpatient (CLI) | payer OTHER | LOC: WOUNDCARE 08:10 | PROVIDERS: ATTEND Surgery | DX: E11.622 Type 2 diabetes mellitus with other skin ulcer (principal); L97.909 Non-pressure chronic ulcer of unspecified part of unspecified lower leg with unspecified severity | CPT/HCPCS: 11042 ==

== ENCOUNTER → 2019-01-12 | Outpatient (CLI) | payer OTHER | LOC: WOUNDCARE 08:10 | PROVIDERS: ATTEND Surgery | DX: S91.302A Unspecified open wound, left foot, initial encounter (principal); E11.40 Type 2 diabetes mellitus with diabetic neuropathy, unspecified ==

== ENCOUNTER → 2019-01-17 | Outpatient (CLI) | payer OTHER | LOC: WOUNDCARE 08:04 | PROVIDERS: ATTEND Surgery | DX: E11.621 Type 2 diabetes mellitus with foot ulcer (principal); E11.42 Type 2 diabetes mellitus with diabetic polyneuropathy; L97.522 Non-pressure chronic ulcer of other part of left foot with fat layer exposed; M86.472 Chronic osteomyelitis with draining sinus, left ankle and foot; E11.52 Type 2 diabetes mellitus with diabetic peripheral angiopathy with gangrene; I96 Gangrene, not elsewhere classified ==

== ENCOUNTER → 2019-01-22 | Outpatient (CLI) | payer OTHER | LOC: WOUNDCARE 08:02 | PROVIDERS: ATTEND Nurse Practitioner | DX: E11.621 Type 2 diabetes mellitus with foot ulcer (principal); L97.522 Non-pressure chronic ulcer of other part of left foot with fat layer exposed; E11.40 Type 2 diabetes mellitus with diabetic neuropathy, unspecified | CPT/HCPCS: 29581 ==

== ENCOUNTER 2019-01-31 08:32 | Outpatient (RCR) | payer OTHER | END 2019-01-31 12:00 | disposition home or self-care (01) | LOC: WOUNDCARE 08:32 | PROVIDERS: ATTEND Surgery | DX: E11.621 Type 2 diabetes mellitus with foot ulcer (principal); L97.526 Non-pressure chronic ulcer of other part of left foot with bone involvement without evidence of necrosis; E11.69 Type 2 diabetes mellitus with other specified complication; M86.472 Chronic osteomyelitis with draining sinus, left ankle and foot; E11.42 Type 2 diabetes mellitus with diabetic polyneuropathy | CPT/HCPCS: 82962; 99183 ==

== ENCOUNTER → 2019-01-31 | Outpatient (CLI) | payer OTHER | LOC: WOUNDCARE 07:59 | PROVIDERS: ATTEND Surgery | DX: E11.621 Type 2 diabetes mellitus with foot ulcer (principal); E11.42 Type 2 diabetes mellitus with diabetic polyneuropathy; E11.52 Type 2 diabetes mellitus with diabetic peripheral angiopathy with gangrene; I96 Gangrene, not elsewhere classified; L97.522 Non-pressure chronic ulcer of other part of left foot with fat layer exposed; M86.472 Chronic osteomyelitis with draining sinus, left ankle and foot | CPT/HCPCS: 11042 ==

== ENCOUNTER → 2019-01-31 | Outpatient (CLI) | payer OTHER ==
--- NOTE | 2019-01-31 15:21 | Diagnostic Imaging Report ---
EXAMINATION: Left foot. INDICATION: Foot pain and swelling. FINDINGS: Three views were obtained. The prior exam of 11/21/2018 noted that the phalanges and the distal half of the fifth ray had been amputated. There was heterotopic ossification in this area, but there was no sign of osteomyelitis. On this exam, those findings are again evident and do not seem to have changed significantly. There is still no sign of bony destruction to indicate osteomyelitis. However, there now does appear to be an area of ulceration along the lateral aspect of the foot in the region of the heterotopic ossification. If clinical concern regarding osteomyelitis persists and further evaluation is desired, then MRI will be recommended. The overall appearance of the left foot is otherwise stable. No new abnormality has developed. IMPRESSION: The postsurgical changes involving the left foot seen previously are again evident. There is still no evidence for bony destruction to suggest osteomyelitis, but there does appear to be ulcer formation now present along the lateral aspect of the foot. Recommendations as above. Dictated by: Dictated on workstation # [id number]
== END ==
LOC: RAD 11:54
PROVIDERS: ATTEND Surgery
DX: E11.621 Type 2 diabetes mellitus with foot ulcer (principal); E11.42 Type 2 diabetes mellitus with diabetic polyneuropathy; L97.522 Non-pressure chronic ulcer of other part of left foot with fat layer exposed; M89.472 Other hypertrophic osteoarthropathy, left ankle and foot; Z89.422 Acquired absence of other left toe(s); Z98.890 Other specified postprocedural states
CPT/HCPCS: 73630

== ENCOUNTER → 2019-02-05 | Outpatient (CLI) | payer OTHER | LOC: WOUNDCARE 10:44 | PROVIDERS: ATTEND Surgery | DX: E11.621 Type 2 diabetes mellitus with foot ulcer (principal); E11.42 Type 2 diabetes mellitus with diabetic polyneuropathy; E11.52 Type 2 diabetes mellitus with diabetic peripheral angiopathy with gangrene; I96 Gangrene, not elsewhere classified; L97.522 Non-pressure chronic ulcer of other part of left foot with fat layer exposed; M86.472 Chronic osteomyelitis with draining sinus, left ankle and foot | CPT/HCPCS: 11042 ==

== ENCOUNTER → 2019-02-07 | Outpatient (CLI) | payer OTHER | LOC: WOUNDCARE 09:42 | PROVIDERS: ATTEND Surgery | DX: E11.621 Type 2 diabetes mellitus with foot ulcer (principal); E11.42 Type 2 diabetes mellitus with diabetic polyneuropathy; E11.52 Type 2 diabetes mellitus with diabetic peripheral angiopathy with gangrene; L97.522 Non-pressure chronic ulcer of other part of left foot with fat layer exposed; I96 Gangrene, not elsewhere classified; M86.472 Chronic osteomyelitis with draining sinus, left ankle and foot | CPT/HCPCS: 11042 ==

== ENCOUNTER → 2019-02-09 | Outpatient (CLI) | payer OTHER | LOC: WOUNDCARE 09:16 | PROVIDERS: ATTEND Surgery | DX: E11.621 Type 2 diabetes mellitus with foot ulcer (principal); E11.42 Type 2 diabetes mellitus with diabetic polyneuropathy; E11.52 Type 2 diabetes mellitus with diabetic peripheral angiopathy with gangrene; L97.522 Non-pressure chronic ulcer of other part of left foot with fat layer exposed; I96 Gangrene, not elsewhere classified; M86.472 Chronic osteomyelitis with draining sinus, left ankle and foot | CPT/HCPCS: 11042 ==

== ENCOUNTER → 2019-02-12 | Outpatient (CLI) | payer OTHER | LOC: WOUNDCARE 09:56 | PROVIDERS: ATTEND Surgery | DX: E11.621 Type 2 diabetes mellitus with foot ulcer (principal); E11.42 Type 2 diabetes mellitus with diabetic polyneuropathy; E11.52 Type 2 diabetes mellitus with diabetic peripheral angiopathy with gangrene; L97.522 Non-pressure chronic ulcer of other part of left foot with fat layer exposed; I96 Gangrene, not elsewhere classified; M86.472 Chronic osteomyelitis with draining sinus, left ankle and foot | CPT/HCPCS: 11042 ==

== ENCOUNTER → 2019-02-14 | Outpatient (CLI) | payer OTHER | LOC: WOUNDCARE 10:03 | PROVIDERS: ATTEND Surgery | DX: E11.621 Type 2 diabetes mellitus with foot ulcer (principal); E11.42 Type 2 diabetes mellitus with diabetic polyneuropathy; L97.522 Non-pressure chronic ulcer of other part of left foot with fat layer exposed; M86.472 Chronic osteomyelitis with draining sinus, left ankle and foot; E11.52 Type 2 diabetes mellitus with diabetic peripheral angiopathy with gangrene; I96 Gangrene, not elsewhere classified | CPT/HCPCS: 11042; 11044; 87070; 87077; 87205 ==

== ENCOUNTER → 2019-02-19 | Outpatient (CLI) | payer OTHER | LOC: WOUNDCARE 09:48 | PROVIDERS: ATTEND Surgery | DX: E11.621 Type 2 diabetes mellitus with foot ulcer (principal); E11.42 Type 2 diabetes mellitus with diabetic polyneuropathy; L97.522 Non-pressure chronic ulcer of other part of left foot with fat layer exposed; M86.472 Chronic osteomyelitis with draining sinus, left ankle and foot; E11.52 Type 2 diabetes mellitus with diabetic peripheral angiopathy with gangrene; I96 Gangrene, not elsewhere classified | CPT/HCPCS: 11042 ==

== ENCOUNTER → 2019-02-21 | Outpatient (CLI) | payer OTHER | LOC: WOUNDCARE 09:48 | PROVIDERS: ATTEND Surgery | DX: E11.621 Type 2 diabetes mellitus with foot ulcer (principal); E11.52 Type 2 diabetes mellitus with diabetic peripheral angiopathy with gangrene; I96 Gangrene, not elsewhere classified; E11.42 Type 2 diabetes mellitus with diabetic polyneuropathy; L97.522 Non-pressure chronic ulcer of other part of left foot with fat layer exposed; M86.472 Chronic osteomyelitis with draining sinus, left ankle and foot | CPT/HCPCS: 15275 ==

== ENCOUNTER → 2019-02-23 | Outpatient (CLI) | payer OTHER ==
[2019-02-23 10:52] LABS: BASOPHILS % (AUTO) 1 % (0-10); EOSINOPHILS # (AUTO) 0.1 10^3/uL (0.0-0.3); EOSINOPHILS % (AUTO) 1 % (0-10); HEMATOCRIT 37 % (40-54); HEMOGLOBIN 12.5 G/DL (13.3-17.7); LYMPHOCYTES # (AUTO) 0.7 X 10^3 (1.0-4.0); LYMPHOCYTES % (AUTO) 19 % (12-44); MEAN CORPUSCULAR HEMOGLOBIN 30 PG (25-34); MEAN CORPUSCULAR HGB CONC 34 G/DL (32-36); MEAN CORPUSCULAR VOLUME 91 FL (80-99); MONOCYTES # (AUTO) 0.3 X 10^3 (0.0-1.0); MONOCYTES % (AUTO) 7 % (0-12); NEUTROPHILS # (AUTO) 2.6 X 10^3 (1.8-7.8); NEUTROPHILS % (AUTO) 72 % (42-75); PLATELET COUNT 237 10^3/uL (130-400); RED CELL DISTRIBUTION WIDTH 14.5 % (10.0-14.5); WHITE BLOOD COUNT 3.6 10^3/uL (4.3-11.0)
[2019-02-23 11:15] LABS: ALANINE AMINOTRANSFERASE 10 U/L (0-55); ALBUMIN 4.2 GM/DL (3.2-4.5); ALKALINE PHOSPHATASE 53 U/L (40-136); BILIRUBIN,TOTAL 1.4 MG/DL (0.1-1.0); BUN/CREATININE RATIO 14; CALCIUM 9.6 MG/DL (8.5-10.1); CARBON DIOXIDE 22 MMOL/L (21-32); CHLORIDE 107 MMOL/L (98-107); CREATININE SERUM 0.85 MG/DL (0.60-1.30); GFR ESTIMATED > 60; GLUCOSE 89 MG/DL (70-105); SODIUM 141 MMOL/L (135-145); TOTAL PROTEIN 7.5 GM/DL (6.4-8.2)
== END ==
LOC: LAB 10:32
PROVIDERS: ATTEND Surgery
DX: E11.621 Type 2 diabetes mellitus with foot ulcer (principal); E11.42 Type 2 diabetes mellitus with diabetic polyneuropathy; L97.522 Non-pressure chronic ulcer of other part of left foot with fat layer exposed; M86.472 Chronic osteomyelitis with draining sinus, left ankle and foot
CPT/HCPCS: 36415; 80053; 83036; 85025

== ENCOUNTER → 2019-02-23 | Outpatient (CLI) | payer OTHER | LOC: WOUNDCARE 10:48 | PROVIDERS: ATTEND Surgery | DX: E11.621 Type 2 diabetes mellitus with foot ulcer (principal); E11.42 Type 2 diabetes mellitus with diabetic polyneuropathy; L97.522 Non-pressure chronic ulcer of other part of left foot with fat layer exposed; M86.472 Chronic osteomyelitis with draining sinus, left ankle and foot | CPT/HCPCS: 29445 ==

== ENCOUNTER → 2019-02-28 | Outpatient (CLI) | payer OTHER | LOC: WOUNDCARE 09:59 | PROVIDERS: ATTEND Surgery | DX: M86.472 Chronic osteomyelitis with draining sinus, left ankle and foot (principal); E11.621 Type 2 diabetes mellitus with foot ulcer; E11.52 Type 2 diabetes mellitus with diabetic peripheral angiopathy with gangrene; I96 Gangrene, not elsewhere classified; E11.42 Type 2 diabetes mellitus with diabetic polyneuropathy; L97.522 Non-pressure chronic ulcer of other part of left foot with fat layer exposed | CPT/HCPCS: 11044; 87070; 87077; 87205 ==

== ENCOUNTER → 2019-02-28 | Outpatient (CLI) | payer OTHER ==
--- NOTE | 2019-02-28 13:33 | Diagnostic Imaging Report ---
INDICATION: Chronic osteomyelitis. Drainage from the left foot. COMPARISON: 01/31/2019. FINDINGS: Three radiographic views of the left foot were obtained. Again identified is partial absence involving the mid and distal portions of the fifth metatarsal. Extraosseous calcification seen adjacent to the distal fifth metatarsal on prior exam is now absent. There is persistent irregular appearance to the distal margins of the fifth metatarsal suggestive of underlying osteolytic process. There is moderate overlying soft tissue swelling. No unexpected radiopaque foreign bodies are seen. No new acute fracture or dislocation is identified. IMPRESSION: 1. Irregular appearance to the residual distal portions of the fifth metatarsal concerning for underlying osteomyelitis. Correlation with MRI is recommended. Dictated by: Dictated on workstation # [id number]
== END ==
LOC: RAD 11:43
PROVIDERS: ATTEND Surgery
DX: E11.621 Type 2 diabetes mellitus with foot ulcer (principal); E11.42 Type 2 diabetes mellitus with diabetic polyneuropathy; M86.472 Chronic osteomyelitis with draining sinus, left ankle and foot; L97.522 Non-pressure chronic ulcer of other part of left foot with fat layer exposed; I70.245 Atherosclerosis of native arteries of left leg with ulceration of other part of foot
CPT/HCPCS: 73630

== ENCOUNTER → 2019-03-02 | Outpatient (CLI) | payer OTHER | LOC: WOUNDCARE 10:12 | PROVIDERS: ATTEND Surgery | DX: M86.472 Chronic osteomyelitis with draining sinus, left ankle and foot (principal); E11.621 Type 2 diabetes mellitus with foot ulcer; E11.42 Type 2 diabetes mellitus with diabetic polyneuropathy; E11.52 Type 2 diabetes mellitus with diabetic peripheral angiopathy with gangrene; I96 Gangrene, not elsewhere classified; L97.522 Non-pressure chronic ulcer of other part of left foot with fat layer exposed | CPT/HCPCS: 11042 ==

== ENCOUNTER → 2019-03-06 | Outpatient (CLI) | payer OTHER | LOC: WOUNDCARE 14:48 | PROVIDERS: ATTEND Surgery | DX: M86.472 Chronic osteomyelitis with draining sinus, left ankle and foot (principal); E11.621 Type 2 diabetes mellitus with foot ulcer; E11.42 Type 2 diabetes mellitus with diabetic polyneuropathy; L97.522 Non-pressure chronic ulcer of other part of left foot with fat layer exposed; E11.52 Type 2 diabetes mellitus with diabetic peripheral angiopathy with gangrene; I96 Gangrene, not elsewhere classified | CPT/HCPCS: 11042 ==

== ENCOUNTER → 2019-03-09 | Outpatient (CLI) | payer OTHER | LOC: WOUNDCARE 10:21 | PROVIDERS: ATTEND Surgery | DX: M86.472 Chronic osteomyelitis with draining sinus, left ankle and foot (principal); E11.621 Type 2 diabetes mellitus with foot ulcer; E11.42 Type 2 diabetes mellitus with diabetic polyneuropathy; L97.522 Non-pressure chronic ulcer of other part of left foot with fat layer exposed; E11.52 Type 2 diabetes mellitus with diabetic peripheral angiopathy with gangrene | CPT/HCPCS: 11042 ==

== ENCOUNTER → 2019-03-13 | Outpatient (CLI) | payer OTHER | LOC: WOUNDCARE 14:44 | PROVIDERS: ATTEND Surgery | DX: E11.621 Type 2 diabetes mellitus with foot ulcer (principal); E11.42 Type 2 diabetes mellitus with diabetic polyneuropathy; E11.52 Type 2 diabetes mellitus with diabetic peripheral angiopathy with gangrene; L97.522 Non-pressure chronic ulcer of other part of left foot with fat layer exposed; I96 Gangrene, not elsewhere classified; M86.472 Chronic osteomyelitis with draining sinus, left ankle and foot | CPT/HCPCS: 11042 ==

== ENCOUNTER → 2019-03-16 | Outpatient (CLI) | payer OTHER | LOC: WOUNDCARE 15:08 | PROVIDERS: ATTEND Surgery | DX: M86.472 Chronic osteomyelitis with draining sinus, left ankle and foot (principal); E11.621 Type 2 diabetes mellitus with foot ulcer; E11.42 Type 2 diabetes mellitus with diabetic polyneuropathy; E11.52 Type 2 diabetes mellitus with diabetic peripheral angiopathy with gangrene; L97.522 Non-pressure chronic ulcer of other part of left foot with fat layer exposed | CPT/HCPCS: 11042 ==

== ENCOUNTER → 2019-03-20 | Outpatient (CLI) | payer OTHER | LOC: WOUNDCARE 15:08 | PROVIDERS: ATTEND Surgery | DX: M86.472 Chronic osteomyelitis with draining sinus, left ankle and foot (principal); E11.621 Type 2 diabetes mellitus with foot ulcer; E11.42 Type 2 diabetes mellitus with diabetic polyneuropathy; L97.522 Non-pressure chronic ulcer of other part of left foot with fat layer exposed; E11.52 Type 2 diabetes mellitus with diabetic peripheral angiopathy with gangrene | CPT/HCPCS: 11042 ==

== ENCOUNTER → 2019-03-23 | Outpatient (CLI) | payer OTHER | LOC: WOUNDCARE 10:10 | PROVIDERS: ATTEND Surgery | DX: M86.472 Chronic osteomyelitis with draining sinus, left ankle and foot (principal); E11.621 Type 2 diabetes mellitus with foot ulcer; E11.42 Type 2 diabetes mellitus with diabetic polyneuropathy; E11.52 Type 2 diabetes mellitus with diabetic peripheral angiopathy with gangrene; L97.522 Non-pressure chronic ulcer of other part of left foot with fat layer exposed | CPT/HCPCS: 11042 ==

== ENCOUNTER → 2019-03-27 | Outpatient (CLI) | payer OTHER | LOC: WOUNDCARE 14:45 | PROVIDERS: ATTEND Surgery | DX: M86.472 Chronic osteomyelitis with draining sinus, left ankle and foot (principal); E11.621 Type 2 diabetes mellitus with foot ulcer; E11.42 Type 2 diabetes mellitus with diabetic polyneuropathy; L97.522 Non-pressure chronic ulcer of other part of left foot with fat layer exposed; E11.52 Type 2 diabetes mellitus with diabetic peripheral angiopathy with gangrene | CPT/HCPCS: 11042 ==

== ENCOUNTER → 2019-03-30 | Outpatient (CLI) | payer OTHER | LOC: WOUNDCARE 10:28 | PROVIDERS: ATTEND Surgery | DX: E11.621 Type 2 diabetes mellitus with foot ulcer (principal); E11.42 Type 2 diabetes mellitus with diabetic polyneuropathy; E11.52 Type 2 diabetes mellitus with diabetic peripheral angiopathy with gangrene; L97.522 Non-pressure chronic ulcer of other part of left foot with fat layer exposed; M86.472 Chronic osteomyelitis with draining sinus, left ankle and foot; I96 Gangrene, not elsewhere classified | CPT/HCPCS: 11042 ==

== ENCOUNTER → 2019-04-03 | Outpatient (CLI) | payer OTHER | LOC: WOUNDCARE 14:53 | PROVIDERS: ATTEND Surgery | DX: E11.621 Type 2 diabetes mellitus with foot ulcer (principal); E11.52 Type 2 diabetes mellitus with diabetic peripheral angiopathy with gangrene; E11.42 Type 2 diabetes mellitus with diabetic polyneuropathy; I96 Gangrene, not elsewhere classified; L97.522 Non-pressure chronic ulcer of other part of left foot with fat layer exposed; M86.472 Chronic osteomyelitis with draining sinus, left ankle and foot | CPT/HCPCS: 11042 ==

== ENCOUNTER → 2019-04-10 | Outpatient (CLI) | payer OTHER | LOC: WOUNDCARE 15:04 | PROVIDERS: ATTEND Surgery | DX: E11.621 Type 2 diabetes mellitus with foot ulcer (principal); E11.52 Type 2 diabetes mellitus with diabetic peripheral angiopathy with gangrene; E11.42 Type 2 diabetes mellitus with diabetic polyneuropathy; L97.522 Non-pressure chronic ulcer of other part of left foot with fat layer exposed; M86.472 Chronic osteomyelitis with draining sinus, left ankle and foot; I96 Gangrene, not elsewhere classified | CPT/HCPCS: 11042 ==

== ENCOUNTER → 2019-04-17 | Outpatient (CLI) | payer OTHER | LOC: WOUNDCARE 14:51 | PROVIDERS: ATTEND Surgery | DX: M86.472 Chronic osteomyelitis with draining sinus, left ankle and foot (principal); E11.621 Type 2 diabetes mellitus with foot ulcer; E11.42 Type 2 diabetes mellitus with diabetic polyneuropathy; L97.522 Non-pressure chronic ulcer of other part of left foot with fat layer exposed; E11.52 Type 2 diabetes mellitus with diabetic peripheral angiopathy with gangrene | CPT/HCPCS: 11042 ==

== ENCOUNTER → 2019-04-24 | Outpatient (CLI) | payer OTHER | LOC: WOUNDCARE 13:57 | PROVIDERS: ATTEND Surgery | DX: E11.621 Type 2 diabetes mellitus with foot ulcer (principal); E11.42 Type 2 diabetes mellitus with diabetic polyneuropathy; E11.52 Type 2 diabetes mellitus with diabetic peripheral angiopathy with gangrene; L97.522 Non-pressure chronic ulcer of other part of left foot with fat layer exposed; M86.472 Chronic osteomyelitis with draining sinus, left ankle and foot; I96 Gangrene, not elsewhere classified | CPT/HCPCS: 11042 ==

== ENCOUNTER → 2019-05-01 | Outpatient (CLI) | payer OTHER | LOC: WOUNDCARE 15:07 | PROVIDERS: ATTEND Surgery | DX: M86.472 Chronic osteomyelitis with draining sinus, left ankle and foot (principal); E11.621 Type 2 diabetes mellitus with foot ulcer; E11.42 Type 2 diabetes mellitus with diabetic polyneuropathy; L97.522 Non-pressure chronic ulcer of other part of left foot with fat layer exposed; E11.52 Type 2 diabetes mellitus with diabetic peripheral angiopathy with gangrene ==

== ENCOUNTER → 2019-05-11 | Outpatient (CLI) | payer OTHER | LOC: WOUNDCARE 09:10 | PROVIDERS: ATTEND Surgery | DX: E11.621 Type 2 diabetes mellitus with foot ulcer (principal); E11.42 Type 2 diabetes mellitus with diabetic polyneuropathy; L97.522 Non-pressure chronic ulcer of other part of left foot with fat layer exposed; M86.472 Chronic osteomyelitis with draining sinus, left ankle and foot; E11.52 Type 2 diabetes mellitus with diabetic peripheral angiopathy with gangrene | CPT/HCPCS: 15275 ==

== ENCOUNTER → 2019-05-15 | Outpatient (CLI) | payer OTHER | LOC: WOUNDCARE 15:05 | PROVIDERS: ATTEND Surgery | DX: E11.621 Type 2 diabetes mellitus with foot ulcer (principal); E11.42 Type 2 diabetes mellitus with diabetic polyneuropathy; L97.522 Non-pressure chronic ulcer of other part of left foot with fat layer exposed; M86.472 Chronic osteomyelitis with draining sinus, left ankle and foot; E11.52 Type 2 diabetes mellitus with diabetic peripheral angiopathy with gangrene | CPT/HCPCS: 11042 ==

== ENCOUNTER → 2019-05-22 | Outpatient (CLI) | payer OTHER | LOC: WOUNDCARE 15:06 | PROVIDERS: ATTEND Surgery | DX: E11.621 Type 2 diabetes mellitus with foot ulcer (principal); E11.52 Type 2 diabetes mellitus with diabetic peripheral angiopathy with gangrene; E11.42 Type 2 diabetes mellitus with diabetic polyneuropathy; L97.522 Non-pressure chronic ulcer of other part of left foot with fat layer exposed; M86.472 Chronic osteomyelitis with draining sinus, left ankle and foot | CPT/HCPCS: 15275 ==

== ENCOUNTER → 2019-05-29 | Outpatient (CLI) | payer OTHER | LOC: WOUNDCARE 12:37 | PROVIDERS: ATTEND Surgery | DX: E11.621 Type 2 diabetes mellitus with foot ulcer (principal); E11.42 Type 2 diabetes mellitus with diabetic polyneuropathy; E11.52 Type 2 diabetes mellitus with diabetic peripheral angiopathy with gangrene; L97.522 Non-pressure chronic ulcer of other part of left foot with fat layer exposed; I96 Gangrene, not elsewhere classified; M86.472 Chronic osteomyelitis with draining sinus, left ankle and foot | CPT/HCPCS: 11042 ==

== ENCOUNTER → 2019-06-05 | Outpatient (CLI) | payer OTHER | LOC: WOUNDCARE 14:54 | PROVIDERS: ATTEND Surgery | DX: E11.621 Type 2 diabetes mellitus with foot ulcer (principal); E11.52 Type 2 diabetes mellitus with diabetic peripheral angiopathy with gangrene; E11.42 Type 2 diabetes mellitus with diabetic polyneuropathy; L97.522 Non-pressure chronic ulcer of other part of left foot with fat layer exposed; M86.472 Chronic osteomyelitis with draining sinus, left ankle and foot | CPT/HCPCS: 15275 ==

== ENCOUNTER → 2019-06-13 | Outpatient (CLI) | payer OTHER | LOC: WOUNDCARE 08:43 | PROVIDERS: ATTEND Surgery | DX: E11.621 Type 2 diabetes mellitus with foot ulcer (principal); E11.42 Type 2 diabetes mellitus with diabetic polyneuropathy; E11.52 Type 2 diabetes mellitus with diabetic peripheral angiopathy with gangrene; L97.522 Non-pressure chronic ulcer of other part of left foot with fat layer exposed; M86.472 Chronic osteomyelitis with draining sinus, left ankle and foot | CPT/HCPCS: 15275 ==

== ENCOUNTER → 2019-06-25 | Outpatient (CLI) | payer OTHER | LOC: WOUNDCARE 08:11 | PROVIDERS: ATTEND Surgery | DX: E11.621 Type 2 diabetes mellitus with foot ulcer (principal); E11.42 Type 2 diabetes mellitus with diabetic polyneuropathy; L97.522 Non-pressure chronic ulcer of other part of left foot with fat layer exposed; M86.472 Chronic osteomyelitis with draining sinus, left ankle and foot | CPT/HCPCS: 99212 ==

== ENCOUNTER 2021-04-10 12:28 | Outpatient (RCR) | payer BC ==
[2021-02-27 16:10] VITALS: BP 148/97
[2021-03-06 14:05] VITALS: BP 120/89
[2021-03-06 14:13] LABS: HEMATOCRIT 31 % (40-54); HEMOGLOBIN 9.7 g/dL (13.3-17.7); MEAN CORPUSCULAR HEMOGLOBIN 27 pg (25-34); MEAN CORPUSCULAR HGB CONC 32 g/dL (32-36); MEAN CORPUSCULAR VOLUME 86 fL (80-99); MEAN PLATELET VOLUME 9.1 fL (9.0-12.2); PLATELET COUNT 225 10^3/uL (130-400); WHITE BLOOD COUNT 5.3 10^3/uL (4.3-11.0)
[2021-03-06 14:32] LABS: CALCIUM 9.7 MG/DL (8.5-10.1); CREATININE SERUM 1.01 MG/DL (0.60-1.30); POTASSIUM 4.2 MMOL/L (3.6-5.0)
[2021-03-06 14:38] LABS: ERYTHROCYTE SEDIMENTATION RATE 81 MM/HR (0-30)
[2021-03-13 11:35] VITALS: BP 132/86
[2021-03-13 11:43] LABS: HEMATOCRIT 31 % (40-54); HEMOGLOBIN 10.1 g/dL (13.3-17.7); MEAN CORPUSCULAR HEMOGLOBIN 28 pg (25-34); MEAN CORPUSCULAR HGB CONC 32 g/dL (32-36); MEAN CORPUSCULAR VOLUME 86 fL (80-99); MEAN PLATELET VOLUME 9.6 fL (9.0-12.2); PLATELET COUNT 292 10^3/uL (130-400); WHITE BLOOD COUNT 6.1 10^3/uL (4.3-11.0)
[2021-03-13 11:50] LABS: POTASSIUM 4.1 MMOL/L (3.6-5.0)
[2021-03-13 11:51] LABS: CALCIUM 9.4 MG/DL (8.5-10.1)
[2021-03-13 11:55] LABS: CREATININE SERUM 0.98 MG/DL (0.60-1.30)
[2021-03-13 12:12] LABS: ERYTHROCYTE SEDIMENTATION RATE 87 MM/HR (0-30)
[2021-03-20 12:30] VITALS: BP 132/86
[2021-03-20 13:23] LABS: HEMATOCRIT 31 % (40-54); HEMOGLOBIN 10.3 g/dL (13.3-17.7); MEAN CORPUSCULAR HEMOGLOBIN 28 pg (25-34); MEAN CORPUSCULAR HGB CONC 33 g/dL (32-36); MEAN CORPUSCULAR VOLUME 83 fL (80-99); MEAN PLATELET VOLUME 9.7 fL (9.0-12.2); PLATELET COUNT 314 10^3/uL (130-400); WHITE BLOOD COUNT 5.5 10^3/uL (4.3-11.0)
[2021-03-20 13:42] LABS: ERYTHROCYTE SEDIMENTATION RATE 64 MM/HR (0-30); POTASSIUM 4.2 MMOL/L (3.6-5.0)
[2021-03-20 13:43] LABS: CALCIUM 9.5 MG/DL (8.5-10.1)
[2021-03-20 13:47] LABS: CREATININE SERUM 1.17 MG/DL (0.60-1.30)
[2021-03-31 11:36] VITALS: BP 119/79
[2021-03-31 12:19] LABS: HEMATOCRIT 34 % (40-54); HEMOGLOBIN 11.2 g/dL (13.3-17.7); MEAN CORPUSCULAR HEMOGLOBIN 28 pg (25-34); MEAN CORPUSCULAR HGB CONC 33 g/dL (32-36); MEAN CORPUSCULAR VOLUME 86 fL (80-99); MEAN PLATELET VOLUME 9.6 fL (9.0-12.2); PLATELET COUNT 277 10^3/uL (130-400); WHITE BLOOD COUNT 5.9 10^3/uL (4.3-11.0)
[2021-03-31 12:27] LABS: POTASSIUM 4.5 MMOL/L (3.6-5.0)
[2021-03-31 12:28] LABS: CALCIUM 9.9 MG/DL (8.5-10.1)
[2021-03-31 12:33] LABS: CREATININE SERUM 1.16 MG/DL (0.60-1.30)
[2021-03-31 12:41] LABS: ERYTHROCYTE SEDIMENTATION RATE 79 MM/HR (0-30)
[~2021-04-10] VITALS: Ht 177.8 cm
[~2021-04-10 12:28] MED LIST changes: -CLIN300C11 PO; +CLIN300C12 PO; +DAPTOMYCIN IV SCH; +NS IV SCH; -SULF1TAB35 PO; +SULF1TAB38 PO
[2021-04-10 12:45] VITALS: BP 135/83
== END 2021-04-10 12:45 | disposition home or self-care (01) ==
LOC: SDC 12:28
PROVIDERS: ATTEND Specialist
DX: M86.10 Other acute osteomyelitis, unspecified site (principal)
CPT/HCPCS: 36569; 76937; 96365; C1751; 36415; 80048; 82550; 85027; 85652; 86141; 99211